=== PATIENT | female | born 1980 | race Caucasian/White ===

== ENCOUNTER 2018-01-13 08:30 | Outpatient (RCR) | payer MEDICAID, SELFPAY ==
--- NOTE | 2017-12-27 10:00 | IE_ITS ---
Date: December 27, 2017 Referring: Dr. Snehal Edwards Diagnosis: 6 weeks post op right tennis elbow surgery P.T. Diagnosis: 6 weeks post op right tennis elbow surgery SUBJECTIVE: History of Present Illness: Patient is a 37 year old female s/p right tennis elbow surgery on 11/11/[address] Brian. She has failed to respond to conservative treatment including previous PT and multiple injections with chronic lateral epicondylitis. She reports of minimal to no swelling at this time. She reports of prn sling usage post operatively. She has not been utilizing for quite some time. She has been referred to PT to begin light strengthening activities with follow up in [address] Brian. Pain Ratin/10 Pain Location: lateral right elbow, fatigue noted quickly in to the extensor compartment with any usage Prior Level of Function: Independent Current Level of Function: limited grasp, lifting, and usage of her right UE post operatively - slowly returning to household related chores Previous Treatment: PT, injections Social: She lives at home with her daughter. 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 She will be returning to work in the end of December. Comorbidities: Chronic headaches, occ tingling and numbness right hand secondary to CTS. She has had a cock up wrist splint fabricated in the past. She has not been utilizing currently. GERD, s/p cystoscopy, s/p tonsillectomy Falls in the last year: No Reported hospitalizations in the last year - No Medications: Omeprazole Quality of Life: Good Standardized Measures: DASH score: 52.5 % perceived disability rating. OBJECTIVE: Posture: mild forward head, protracted scapulae bilaterally Observation: Incision has healed well with no signs of infection. Minimal to no swelling noted at time of PT consult. Palpation: Sensitive to palpation over the incision right lateral elbow and into the extensor compartment. ROM: Active right wrist flexion 70 degrees, extension 70 degrees, ulnar deviation 45 degrees, radial deviation 25 degrees. Mild tightness without complaints of pain. Right elbow flexion 115 degrees, extension lacking 5 degrees from neutral with light drawing senstation noted. AAROM right elbow flexion 130 degrees, extension 0 degrees. Left wrist equal to contralateral side without pain. Left elbow flexion 140 degrees, extension 0 degrees. Demonstrates full A shoulder ROM without pain. Strength: Rosado Pinch right 6 lbs, left 16 lbs, Pinch right 3 lbs, left 10 lbs, 3 shabana jaw right 4 lbs, left 12 lbs. Functional Grasp utilizing Gerry setting 2 average of 3 trials: right 5 lbs, left 68 lbs. Neuro: Intact to light touch. Notes occasional paresthesias consistent with the median nerve distribution. Recommended she utilize wrist splint at night for symptomatic reduction. Treatment: IE: 24408 Patient Education: in HEP promoting AROM and light strengthening of the right wrist and forearm. P/AAROM performed to the right elbow and wrist within symptom allowance. Scar tissue mobilization also provided. STM throughout the extensor compartment. Followed by cryotherapy to the right elbow for 10 minutes at no charge. Recommended that she continue to ice for pain relief especially as she returns to her previous level of function and routine with household related chores. Direct treatment time: 35 minutes Total treatment time: 45 minutes ASSESSMENT: Patient is a 37-year-old female, referred for PT services with the diagnosis of s/p right tennis elbow surgery on 11/11/17. Patient presents with clinical signs and symptoms consistent with diagnosis, as demonstrated by the following impairment level findings: impaired motor function, muscle performance, ROM and pain. Impairments are contributing to the following functional limitations: limited ADL's, lifting, grasp, DASH 52.5% Patient is assessed as: Low 39950 complexity, based on the following: History: See comorbidities and social history. Examination: See above for functional limitations and impairments. Presentation: Stable . Decision-Making: Low complexity 52.5 % Disability based on DASH Patient requires skilled PT intervention to remediate the above functional limitations to return to: __X__ Premorbid level of function __X__ Return to full functional mobility __X__ Return to work demands __X__ Improve QOL Prognosis: Good STG: __4__ weeks. 1. Patient demonstrate full active ROM of the right elbow, forearm and wrist. 2. Demonstrate improved functional grasp by 5 lbs or greater right hand. 3. Increased pinch strength by 3 lbs or greater right hand. 4. Reduced PDR via DASH by 25 % or greater. 5. Improved ADL tolerance with reduced pain via VAS by 50% or greater. LTG: __8__ weeks. 1. Return to premorbid level of function. 2. Return to full, pain-free, functional mobility. 3. Independent with self-maintenance program. PLAN: Patient to be seen 2 x per week, for 8 weeks, adjusting frequency of visits per patient symptoms and response to treatment. Treatment to include: Manual therapy - 65747: Promoting A/AA/PROM throughout the right elbow, forearm, wrist and hand with mobilization as needed. STM, scar tissue mobilization, soft tissue stretching Therapeutic exercise - 67818. Progressive resisted training to the right UE within symptom allowance and per protocol s/p tennis elbow surgery. Modalities will be utilized as needed for pain reduction. Progression to strong I self management program as symptom level is tolerated. Will plan on discharge from our care when above goals have been met. Thank you for this referral. Please do not hesitate to contact me with any questions or concerns regarding this patient's plan of care.
--- NOTE | 2017-12-30 09:30 | PTTR_ITS ---
DATE: 12/30/17 SUBJECTIVE: Has been trying to do her HEP regularly. Elbow pain is about a 4 out of 10 on 0-10 pain scale. OBJECTIVE: Manual therapy: (27547x2). Performed soft tissue mobilization throughout the right forearm, gentle AAROM into wrist flexion, extension and supination/ pronation, scar tissue massage and stretching into elbow flexion and extension. Therapeutic procedures (34231o6). * x HEP review: Upgraded HEP to include PREs for right wrist and elbow. See copy of these exercises located in patient's file. Unable to utilize resistance with wrist flexion or extension due to sensitivity, advised to do without resistance for now until able to perform 20 to 30 reps without pain with no weight. * x See flow sheet: Focus on light wrist and forearm strengthening. * x Provided skilled instruction in proper exercise performance * x Provided skilled manual cues to facilitate proper muscle recruitment and/ or movement pattern * Ended session with cryotherapy x 10 minutes to right elbow. Direct treatment time: 30 minutes Total treatment time: 40 minutes
--- NOTE | 2018-01-02 13:30 | PTTR_ITS ---
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 She feels this position will be better for her health rodriguez. Manual therapy: (15652e2). Did receive soft tissue mobilization throughout the R extensor musculature as well as scar tissue massage to the R elbow. Gentle stretching into wrist flexion/extension was performed as well as elbow flexion/extension which was full. Therapeutic procedures ([id number]). See flow sheet for Therex activities performed in clinic today. Focus was on strengthening of the R elbow, forearm and hand musculature. Verbal and tactile cueing were given throughout session for proper positioning and isolation of specific muscles. Treatment was ended with 10 mins of cryotherapy while in seated position at no charge. Direct treatment time: 35 mins Total treatment time: 45 mins SG/dl
--- NOTE | 2018-01-07 09:30 | PTTR_ITS ---
DATE: 01/07/18 SUBJECTIVE: Indicated she is doing okay, but forearm is sore this morning. 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 Thinks this will be good for her physically and mentally. OBJECTIVE: Manual therapy: ([id number]). Soft tissue mobilization throughout the right elbow / forearm. This included scar tissue massage and AAROM of elbow and wrist throughout all planes. Therapeutic procedures (33150p4). * x See flow sheet: Focus on strengthening of right UE. * x Provided skilled instruction in proper exercise performance * x Provided skilled manual cues to facilitate proper muscle recruitment and/ or movement pattern Ended session with cryotherapy x 10 minutes to right elbow. Direct treatment time: 35 minutes Total treatment time: 45 minutes
--- NOTE | 2018-01-10 09:00 | PTTR_ITS ---
DATE: January 10, 2018 SUBJECTIVE: Christina reports that she is overall doing well. She starts a new job on the Jan. 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 She is very excited to start. She feels that her ROM is doing well. Continues to note generalized soreness however continues to do more and more at home with less difficulty. OBJECTIVE: Manual therapy: ([id number]).STM throughout the right forearm and distal bicep. Scar tissue mobilization also provided. P/AAROM throughout the right forearm and elbow. Soft tissue stretching of the wrist flexors and extensors. ROM is currently WNL. Therapeutic procedures ([id number]). * X See flow sheet: Completed therex routine incorporated functional grasp, pinch and forearm stabilization including bicep curl. * X Provided skilled instruction in proper exercise performance: promoting body mechanics * X Provided skilled manual cues to facilitate proper muscle recruitment and/ or movement pattern: avoiding compensatory movement patterns. Ended with cryotherapy to the right elbow post session for 10 minutes. Will continue to advance with resistance training within symptom allowance. ROM is doing great and is WNL at this time. Direct treatment time: 30 minutes Total treatment time: 40 minutes
--- NOTE | 2018-01-13 11:09 | PTTR_ITS ---
DATE: 01/13/18 SUBJECTIVE: Christina reports feeling a little better. She c/o a global soreness which seems to be more superficial. OBJECTIVE: Manual therapy: (30505h3). STM t/o entire right UE. Light scar tissue work. I focused most of STM t/o lateral aspect of upper arm. She also received ROM t/o all planes of elbow. Stretching of forearm, wrist flexors and extensors. She ended with cryo x 10 min to elbow. Therapeutic procedures ([id number]). * x See flow sheet: for global strength and stabilization of right UE. * x Provided skilled instruction in proper exercise performance: cues for proper mechanics. Direct treatment time: 30 min Total treatment time: 40 min
--- NOTE | 2018-01-15 08:57 | NT_ITS ---
Christina cancelled today's appointment. She is taking her dog to the vet for an appointment. She will see Alicia next week. Jaclyn Watson Maintenance Mgr
== END 2018-01-17 23:59 | disposition home or self-care (01) ==
LOC: PT 08:30
PROVIDERS: PCP Internal Medicine; Referring Provider Orthopaedic Surgery; Visit Provider Orthopaedic Surgery
DX: Z47.1 Aftercare following joint replacement surgery (principal); M77.11 Lateral epicondylitis, right elbow
CPT/HCPCS: 97110; 97140; 97161

== ENCOUNTER 2018-05-21 19:28 | Emergency (ER) | payer MEDICAID, SELFPAY ==
[2018-05-21 19:39] VITALS: BP 140/88; PULSE 80; RESP 16; TEMP 36.5; O2SAT 100
--- NOTE | 2018-05-21 19:46 | W.ED.GENAD ---
Discharge Plan Disposition Patient Disposition: HOME Condition: Fair Discharge Details Chief Complaint: Laceration Clinical Impression: Finger laceration Reason For Visit: [id number] Primary Care Provider: Luana Lopez ED Provider: Taya Curry Home Meds and New Rx's Prescriptions: No Action epinephrine [EpiPen 2-Dante] 0.3 MG/0.3 ML auto-injector 0.3 mg IM as directed Qty: 1 RF: 0 omeprazole 20 MG capsule,delayed release(DR/EC) 20 mg PO DAILY Qty: 90 RF: 4 PROVENTIL HFA 18 GM HFA.AER.AD 1 - 2 puff Inhalation QID PRN Qty: 1 RF: 0 diphenhydramine-acetaminophen [Tylenol PM Extra Strength] 1 EACH tablet 2 ea PO HS PRNRF: 0 ibuprofen 800 MG tablet 800 mg PO TID Qty: 30 RF: 0 Discharge Instructions Instructions: Finger Laceration (ED) Additional Instructions: Keep wound clean, dry, covered. Monitor for signs of infection including redness, warmth, drainage, increased pain, fevers/chills. If these arise please seek care urgently once again. Referrals: Luana Lopez MD [Primary Care Provider] - Medical Decision Making Patient is a 38 year old RHD female presenting today with c/c of laceration to the left index finger. reprots she cut herself last night with a bread knife. Denies other at the time of the incident. No fevers/chills. States that throughout the day she has noted altered sensation, described as tingling, distally to the laceration. 2 point discrimination is intact. Wound appears very superficial, no active bleeding. She was also concerned for possible infection. She did wash the wound and covered with adhesive last night. Removed dahesive today. No erythema, warmmth, drainage. Advised that her tingling may be associated with the swelling noted around the wound. No signs of infection at this time. Advised on wound care in depth. Wound was cleansed and dressed by nursing staff. Discussed signs and symptoms of infection and when to seek care urgently once again. She is not UTD on tetanus, will update this today. All of her questions and concerns were addressed, she is in agreement with this plan. HPI General Mode of arrival: ambulatory. Date/Time Provider Initiated Documentation: 05/21/18 19:36. Limitations to Documentation: no limitations. Information obtained by: patient and family. History of Present Illness 38 year old F presents to the emergency department with the chief complaint of laceration left index finger, described as mild, Quality is described as aching, and is localized to the left and upper extremity. Patient reports no radiation. Patient started experiencing this day(s) (1) and it has been constant. No relieving factors improve symptom(s), No exacerbating factors reported . Patient notes other (endorses tingling distal to the wound); denies cough, fever/chills and rash. Patient did receive the following treatments prior to arrival, none Related Data Home Medications Medication Instructions Recorded Confirmed epinephrine [Epipen 2-Dante] 0.3 mg IM as directed #1 pack 11/22/15 05/21/18 diphenhydramine-acetaminophen 2 ea PO HS PRN 06/07/16 05/21/18 [Tylenol Pm Ex-Strength Caplet] omeprazole 20 mg PO DAILY #90 tab-cap 08/12/17 05/21/18 ibuprofen 800 mg PO TID #30 tab 11/11/17 05/21/18 Previous Rx's Medication Instructions Recorded omeprazole 20 mg PO DAILY #90 tab-cap 08/12/17 ibuprofen 800 mg PO TID #30 tab 11/11/17 Allergies Allergy/AdvReac Type Severity Reaction Status Date / Time shellfish derived Allergy Severe Unverified 05/21/18 19:44 wheat Allergy Intermediate TIGHTENING Unverified 05/21/18 19:44 OF THROAT latex Allergy Mild SKIN RASH Unverified 05/21/18 19:44 Penicillins Allergy Mild HIVES Unverified 05/21/18 19:44 amoxicillin Allergy Unknown HIVES Unverified 05/21/18 19:44 egg Allergy Unknown Unverified 05/21/18 19:44 milk Allergy Unknown Unverified 05/21/18 19:44 lactose AdvReac Mild DIARRHEA Unverified 05/21/18 19:44 melons Allergy Severe Itching Uncoded 05/21/18 19:44 ADHESIVE TAPE Allergy Mild SKIN RASH Uncoded 05/21/18 19:44 ANIMAL DANDER Allergy Unknown Uncoded 05/21/18 19:44 MOLDS AND SMUTS Allergy Unknown Uncoded 05/21/18 19:44 General Stated Complaint: Laceration MARCUS: 4 Review of Systems Constitutional Reports as per HPI, Denies chills and Denies fever(s) Musculoskeletal Reports as per HPI and Reports tingling Integumentary/Breasts Reports as per HPI Neurologic Reports as per HPI and Reports tingling [facility] Medical History Bipolar 2 disorder Contraceptive management Depression Family History Mother Stroke Father Depression Heart disease Myocardial infarction Sister Substance abuse Sister Substance abuse Brother No problems noted. Grandfather Stroke Grandfather No problems noted. Grandmother Stroke Grandmother No problems noted. Daughter Depression Daughter No problems noted. Social History Smoking/Tobacco Use Status: Former Tobacco Use Exam Const General: cooperative, healthy appearing, comfortable, no acute distress and well developed Nutritional Appearance: average body habitus and well nourished Orientation: alert and awake Resp Effort & Inspection: normal respiratory effort, able to speak in complete sentences and no respiratory distress Cardio Rate: regular rate Rhythm: regular rhythm Skin Trauma: laceration (superfical curvilinear wound radial left index, 5mm. No bleeding) Neuro General: alert and awake Cognition: normal cognition Speech: speech normal Gait: normal gait Sensory Exam: no sensory deficits noted (2 point intact) Extrem Left upper extremity: full ROM, normal capillary refill and hand Details: normal capillary refill, neuromotor exam normal, neurosensory exam normal, tendon exam normal and tenderness (around laceration); abnormal to inspection (as above), no cyanosis and joint enlargement noted (patient has swelling around the wound. No erythema, warmth, drainage) Psych Appearance: grossly normal and well kempt Mental Status: mental status grossly normal Speech and Movement: speech and movement normal Course Vital Signs Temperature 36.5 C 05/21/18 19:39 Pulse 80 05/21/18 19:39 Respiratory Rate 16 05/21/18 19:39 Blood Pressure 140/88 05/21/18 19:39 Pulse Oximetry 100 05/21/18 19:39 Temperature 36.5 C 05/21/18 19:39 Temperature Source Temporal Artery Scan 05/21/18 19:39 Pulse 80 05/21/18 19:39 Respiratory Rate 16 05/21/18 19:39 Respiratory Effort 05/21/18 19:42 Blood Pressure 140/88 05/21/18 19:39 Pulse Oximetry 100 05/21/18 19:39 Oxygen Delivery Method Room Air 05/21/18 19:39 Oxygen Flow Rate 0 05/21/18 19:39
--- NOTE | 2018-05-21 20:51 | ED.GENADUL_ITS ---
Discharge Plan Disposition Patient Disposition: HOME Condition: Fair Discharge Details Chief Complaint: Laceration Clinical Impression: Finger laceration Reason For Visit: [id number] Primary Care Provider: Luana Lopez ED Provider: Taya Curry Home Meds and New Rx's Prescriptions: No Action epinephrine [EpiPen 2-Dante] 0.3 MG/0.3 ML auto-injector 0.3 mg IM as directed Qty: 1 RF: 0 omeprazole 20 MG capsule,delayed release(DR/EC) 20 mg PO DAILY Qty: 90 RF: 4 PROVENTIL HFA 18 GM HFA.AER.AD 1 - 2 puff Inhalation QID PRN Qty: 1 RF: 0 diphenhydramine-acetaminophen [Tylenol PM Extra Strength] 1 EACH tablet 2 ea PO HS PRNRF: 0 ibuprofen 800 MG tablet 800 mg PO TID Qty: 30 RF: 0 Discharge Instructions Instructions: Finger Laceration (ED) Additional Instructions: Keep wound clean, dry, covered. Monitor for signs of infection including redness, warmth, drainage, increased pain, fevers/chills. If these arise please seek care urgently once again. Referrals: Luana Lopez MD [Primary Care Provider] - Medical Decision Making Patient is a 38 year old RHD female presenting today with c/c of laceration to the left index finger. reprots she cut herself last night with a bread knife. Denies other at the time of the incident. No fevers/chills. States that throughout the day she has noted altered sensation, described as tingling, d istally to the laceration. 2 point discrimination is intact. Wound appears very superficial, no active bleeding. She was also concerned for possible infection. She did wash the wound and covered with adhesive last night. Removed dahesive today. No erythema, warmmth, drainage. Advised that her tingling may be associated with the swelling noted around the wound. No signs of infection at this time. Advised on wound care in depth. Wound was cleansed and dressed by nursing staff. Discussed signs and symptoms of infection and when to seek care urgently once again. She is not UTD on tetanus, will update this today. All of her questions and concerns were addressed, she is in agreement with this plan. HPI General Mode of arrival: ambulatory . Date/Time Provider Initiated Documentation: 05/21/18 19:36 . Limitations to Documentation: no limitations . Information obtained by: patient and family . History of Present Illness 38 year old F presents to the emergency department with the chief complaint of laceration left index finger, described as mild, Quality is described as aching, and is localized to the left and upper extremity. Patient reports no radiation. Patient started experiencing this day(s) (1) and it has been constant. No relieving factors improve symptom(s), No exacerbating factors reported . Patient notes other (endorses tingling distal to the wound); denies cough, fever/chills and rash. Patient did receive the following treatments prior to arrival, none Related Data Home Medications Medication Instructions Recorded Confirmed epinephrine [Epipen 2-Dante] 0.3 mg IM as directed #1 pack 11/22/15 05/21/18 diphenhydramine-acetaminophen 2 ea PO HS PRN 06/07/16 05/21/18 [Tylenol Pm Ex-Strength Caplet] omeprazole 20 mg PO DAILY #90 tab-cap 08/12/17 05/21/18 ibuprofen 800 mg PO TID #30 tab 11/11/17 05/21/18 Previous Rx's Medication Instructions Recorded omeprazole 20 mg PO DAILY #90 tab-cap 08/12/17 ibuprofen 800 mg PO TID #30 tab 11/11/17 Allergies Allergy/AdvReac Type Severity Reaction Status Date / Time shellfish derived Allergy Severe Unverified 05/21/18 19:44 wheat Allergy Intermediate TIGHTENING Unverified 05/21/18 19:44 OF THROAT latex Allergy Mild SKIN RASH Unverified 05/21/18 19:44 Penicillins Allergy Mild HIVES Unverified 05/21/18 19:44 amoxicillin Allergy Unknown HIVES Unverified 05/21/18 19:44 egg Allergy Unknown Unverified 05/21/18 19:44 milk Allergy Unknown Unverified 05/21/18 19:44 lactose AdvReac Mild DIARRHEA Unverified 05/21/18 19:44 melons Allergy Severe Itching Uncoded 05/21/18 19:44 ADHESIVE TAPE Allergy Mild SKIN RASH Uncoded 05/21/18 19:44 ANIMAL DANDER Allergy Unknown Uncoded 05/21/18 19:44 MOLDS AND SMUTS Allergy Unknown Uncoded 05/21/18 19:44 General Stated Complaint: Laceration MARCUS: 4 Review of Systems Constitutional Reports as per HPI, Denies chills and Denies fever(s) Musculoskeletal Reports as per HPI and Reports tingling Integumentary/Breasts Reports as per HPI Neurologic Reports as per HPI and Reports tingling [facility] Medical History Bipolar 2 disorder Contraceptive management Depression Family History Mother Stroke Father Depression Heart disease Myocardial infarction Sister Substance abuse Sister Substance abuse Brother No problems noted. Grandfather Stroke Grandfather No problems noted. Grandmother Stroke Grandmother No problems noted. Daughter Depression Daughter No problems noted. Social History Smoking/Tobacco Use Status: Former Tobacco Use Exam Const General: cooperative, healthy appearing, comfortable, no acute distress and well developed Nutritional Appearance: average body habitus and well nourished Orientation: alert and awake Resp Effort & Inspection: normal respiratory effort, able to speak in complete sentences and no respiratory distress Cardio Rate: regular rate Rhythm: regular rhythm Skin Trauma: laceration (superfical curvilinear wound radial left index, 5mm. No bleeding) Neuro General: alert and awake Cognition: normal cognition Speech: speech normal Gait: normal gait Sensory Exam: no sensory deficits noted (2 point intact) Extrem Left upper extremity: full ROM, normal capillary refill and hand Details: normal capillary refill, neuromotor exam normal, neurosensory exam normal, tendon exam normal and tenderness (around laceration); abnormal to inspection (as above), no cyanosis and joint enlargement noted (patient has swelling around the wound. No erythema, warmth, drainage) Psych Appearance: grossly normal and well kempt Mental Status: mental status grossly normal Speech and Movement: speech and movement normal Course Vital Signs Temperature 36.5 C 05/21/18 19:39 Pulse 80 05/21/18 19:39 Respiratory Rate 16 05/21/18 19:39 Blood Pressure 140/88 05/21/18 19:39 Pulse Oximetry 100 05/21/18 19:39 Temperature 36.5 C 05/21/18 19:39 Temperature Source Temporal Artery Scan 05/21/18 19:39 Pulse 80 05/21/18 19:39 Respiratory Rate 16 05/21/18 19:39 Respiratory Effort 05/21/18 19:42 Blood Pressure 140/88 05/21/18 19:39 Pulse Oximetry 100 05/21/18 19:39 Oxygen Delivery Method Room Air 05/21/18 19:39 Oxygen Flow Rate 0 05/21/18 19:39
== END 2018-05-21 20:02 | disposition home or self-care (01) ==
PROVIDERS: Emergency Provider Physician Assistant; PCP Internal Medicine
DX: S61.211A Laceration without foreign body of left index finger without damage to nail, initial encounter (principal); W26.0XXA Contact with knife, initial encounter
CPT/HCPCS: 99282

== ENCOUNTER 2018-10-14 17:01 | Emergency (ER) | payer MEDICAID, SELFPAY ==
[2018-10-14 17:12] VITALS: BP 135/95; PULSE 82; RESP 16; TEMP 36.6; O2SAT 98
--- NOTE | 2018-10-14 17:48 | DI.RAD_ITS ---
SYMPTOM/DIAGNOSIS: COUGH PA AND LATERAL CHEST: The heart is normal in size. The lungs are clear. The mediastinal structures and pleura appear intact. CONCLUSION: Normal chest. No evidence of acute cardiopulmonary disease.
--- NOTE | 2018-10-14 18:28 | ED.GENADUL_ITS ---
Discharge Plan Disposition Patient Disposition: HOME Discharge Details Chief Complaint: RespSymp Clinical Impression: Pneumonia Primary Care Provider: Luana Lopez ED Provider: Louis Wilder Home Meds and New Rx's Prescriptions: New doxycycline hyclate 100 mg tablet 100 mg PO BID Qty: 13 RF: 0 Continued epinephrine [EpiPen 2-Dante] 0.3 MG/0.3 ML auto-injector 0.3 mg IM as directed Qty: 1 RF: 0 PROVENTIL HFA 18 GM HFA.AER.AD 1 - 2 puff Inhalation QID PRN Qty: 1 RF: 0 omeprazole 20 mg capsule,delayed release(DR/EC) 20 mg PO DAILY Qty: 90 RF: 4 diphenhydramine-acetaminophen [Tylenol PM Extra Strength] 1 EACH tablet 2 ea PO HS PRNRF: 0 ibuprofen 800 MG tablet 800 mg PO TID Qty: 30 RF: 0 Discharge Instructions Instructions: Pneumonia (ED) Additional Instructions: Please drink plenty of fluids to stay hydrated. Take full course of antibiotic as prescribed. Please contact your primary care physician to arrange follow-up. Call tomorrow. Return to the ER for any worsening or new concerning symptoms. Referrals: Luana Lopez MD [Primary Care Provider] - Discharge Data Discharge Date/Time-TO BE ENTERED AT DEPARTURE: 10/14/18 19:22 Medical Decision Making 38-year-old female here with 4 weeks of productive cough, worsening, also with sinus congestion. Positive sick family member with respiratory illness. Patient is saturating well in no respiratory distress with clear to auscultation on exam. Chest x-ray reviewed and interpreted by radiology: Suspect worsening bacterial bronchitis versus early pneumonia. Plan to treat with doxycycline -local resistance to azithromycin and patient has penicillin allergy. Plan of the patient follow-up with her primary care physician. Usual customary discharge instructions were provided the patient. Patient verbalized understanding of timely follow-up and that she should return immediately should she have any worsening or new concerning symptoms HPI General Mode of arrival: ambulatory . Date/Time Provider Initiated Documentation: 10/14/18 17:11 . Limitations to Documentation: no limitations . Information obtained by: patient . HPI Narrative: 38-year-old female presents with chief complaint of cough. Patient has she has had a cough for the past 4 weeks. Cough has persisted and worsened. Cough is now moderate to severe. Cough is productive of green sputum. She has associated intermittent subjective fever. No shortness of breath. She does feel some chest congestion. She also notes sinus congestion and sinus pain intermittently. No sore throat or ear pain. No recent long distance travel. Her daughter is sick with respiratory illness as well. She has tried some [id number]-[id number] cough and cold medications that have not provided much relief. Patient has not yet seen her primary care physician. Related Data Home Medications Medication Instructions Recorded Confirmed epinephrine [EpiPen 2-Dante] 0.3 mg IM as directed #1 pack 11/22/15 10/14/18 diphenhydramine-acetaminophen 2 ea PO HS PRN 06/07/16 10/14/18 [Tylenol PM Extra Strength] ibuprofen 800 mg PO TID #30 tab 11/11/17 10/14/18 doxycycline hyclate 100 mg PO BID #13 tab 10/14/18 omeprazole 20 mg capsule,delayed 20 mg PO DAILY #90 tab-cap 10/14/18 10/14/18 release Previous Rx's Medication Instructions Recorded ibuprofen 800 mg PO TID #30 tab 11/11/17 doxycycline hyclate 100 mg PO BID #13 tab 10/14/18 omeprazole 20 mg capsule,delayed 20 mg PO DAILY #90 tab-cap 10/14/18 release Allergies Allergy/AdvReac Type Severity Reaction Status Date / Time shellfish derived Allergy Severe Unverified 10/14/18 17:15 wheat Allergy Intermediate TIGHTENING Unverified 10/14/18 17:15 OF THROAT latex Allergy Mild SKIN RASH Unverified 10/14/18 17:15 Penicillins Allergy Mild HIVES Unverified 10/14/18 17:15 amoxicillin Allergy Unknown HIVES Unverified 10/14/18 17:15 egg Allergy Unknown Unverified 10/14/18 17:15 milk Allergy Unknown Unverified 10/14/18 17:15 lactose AdvReac Mild DIARRHEA Unverified 10/14/18 17:15 melons Allergy Severe Itching Uncoded 10/14/18 17:15 ADHESIVE TAPE Allergy Mild SKIN RASH Uncoded 10/14/18 17:15 ANIMAL DANDER Allergy Unknown Uncoded 10/14/18 17:15 MOLDS AND SMUTS Allergy Unknown Uncoded 10/14/18 17:15 General Stated Complaint: RespSymp MARCUS: 4 Review of Systems Review of Systems All systems reviewed & are unremarkable except as noted in HPI and below ENT Reports sinus pain and Reports sinus pressure Respiratory Reports chest congestion and Reports cough PFSH Medical History Bipolar 2 disorder Contraceptive management Depression Family History Mother Stroke Father Depression Heart disease Myocardial infarction Sister Substance abuse Sister Substance abuse Brother No problems noted. Grandfather Stroke Grandfather No problems noted. Grandmother Stroke Grandmother No problems noted. Daughter Depression Daughter No problems noted. Social History Smoking/Tobacco Use Status: Former Tobacco Use Drug use: Never Do you feel safe in your relationship?: Yes Exam Const General: cooperative and no acute distress HENMT Head: normocephalic General nose exam: external nose normal and nares normal Mouth: moist mucous membranes Throat: uvula midline, posterior oropharynx abnormal erythema (mild); no cobblstoning, no edema and no exudates and no uvular edema Eyes Conjunctivae: normal conjunctivae Sclera: normal sclerae Neck Neck: normal visual inspection Resp Effort & Inspection: normal respiratory effort, able to speak in complete sentences, cough Quality of cough: productive, not labored, no stridor and not tachypneic Auscultation: no rales, rhonchi and no wheezes Cardio Rate: regular rate and not tachycardic Rhythm: regular rhythm GI Palpation: soft, not firm, no guarding, no masses, not rigid and nontender Skin General skin exam: no rashes or lesions noted Neuro General: alert, awake and tone normal Extrem General: no edema Course Vital Signs Temperature 36.6 C 10/14/18 17:12 Pulse 82 10/14/18 17:12 Respiratory Rate 16 10/14/18 17:12 Blood Pressure 135/95 H 10/14/18 17:12 Pulse Oximetry 98 10/14/18 17:12 Temperature 36.6 C 10/14/18 17:12 Temperature Source Skin 10/14/18 17:12 Pulse 82 10/14/18 17:12 Respiratory Rate 16 10/14/18 17:12 Respiratory Effort Non-Labored 10/14/18 17:12 Blood Pressure 135/95 H 10/14/18 17:12 Blood Pressure Position Sitting 10/14/18 17:12 Pulse Oximetry 98 10/14/18 17:12 Oxygen Delivery Method Room Air 10/14/18 17:12 Oxygen Flow Rate 0 10/14/18 17:12 Pain Level 3 10/14/18 17:12
--- NOTE | 2018-10-14 18:55 | DI.VRAD_ITS ---
EXAM: XR Chest, 2 Views EXAM DATE/TIME: 10/14/2018 5:49 PM CLINICAL HISTORY: 38 years old, female; Signs and symptoms; Other: Cough 1mo TECHNIQUE: Imaging protocol: XR of the chest, 2 views. COMPARISON: CR CHEST 2 VIEWS PA,LAT 07/10/2012 1:34 PM FINDINGS: Lungs: Lungs are adequately inflated and symmetric. No focal consolidation or pulmonary edema. Pleural space: No pleural effusion. No pneumothorax. Heart/Mediastinum: Cardiomediastinal contours within normal limits. Bones/joints: No acute osseous finding. Soft tissues: No focal soft tissue abnormailty. IMPRESSION: No acute findings. Dictated and Authenticated by: Jeremiah Blunt MD. Ordering:BIENVENIDO Myers MD
[2018-10-14 19:11] VITALS: BP 120/80; PULSE 77; RESP 17; TEMP 36.6; O2SAT 98
[2018-10-14] MEDS: Doxycycline Hyclate 100 MG CAP PO (19:11)
== END 2018-10-14 19:22 | disposition home or self-care (01) ==
PROVIDERS: Emergency Provider Student in an Organized Health Care Education/Training Program; PCP Internal Medicine
DX: J18.9 Pneumonia, unspecified organism (principal); R09.81 Nasal congestion
CPT/HCPCS: 99283; 71046

== ENCOUNTER 2019-04-03 12:37 | Outpatient (CLI) | payer OTHER, SELFPAY ==
[2019-04-03 12:56] LABS: HCT 39.9 % (36.0-46.0); HGB 13.3 g/dL (12.0-15.5); Mean Corp. HGB Concentration 33.3 g/dL (32.0-36.0); Mean Corpuscular Hemoglobin 30.7 pg (27.0-33.0); Mean Corpuscular Volume 92.1 fL (80-95); Mean Platelet Volume 9.4 fL (8.0-11.0); Platelet Count 387 x1000/uL (130-400); RBC 4.33 m/cumm (4.00-5.20); RBC Distribution Width 12.7 % (11.7-14.6); White Blood Cell Count 8.57 k/cumm (4.4-10.8)
[2019-04-03 14:13] LABS: Anion Gap 7.7 mmol/L (3-11); BUN 15 mg/dL (7-18); CO2 26.3 mmol/L (21.0-32.0); Calcium 9.1 mg/dL (8.5-10.1); Chloride 105 mmol/L (98-107); Glucose 94 mg/dL (70-100); Potassium 4.5 mmol/L (3.5-5.1); Sodium 139 mmol/L (136-145); TSH 1.97 uIU/mL (0.36-3.74)
== END 2019-04-03 12:57 ==
PROVIDERS: PCP Internal Medicine; Visit Provider Nurse Practitioner
DX: R42 Dizziness and giddiness (principal); F41.9 Anxiety disorder, unspecified
CPT/HCPCS: 36415; 80048; 85027; 84443

== ENCOUNTER 2019-04-23 16:25 | Outpatient (REF) | payer OTHER, SELFPAY ==
--- NOTE | 2019-04-23 15:50 | PAPFT_PTH ---
PATIENT: Nely Reyes LOC: [facility] U#:[id number] AGE/SX: 39/F ROOM: RE04/23/[address]: STEVE Holcomb : 1980 BED: DIS: 04/23/2019 SPEC #: [id number] RECD: 04/23/19 18:28 STATUS: KIARA REQ #: [id number] BEN: 04/23/19 15:[address]: Earnestine Flanagan DEPT: [facility] Cytology RECD BY: Syl Rodas ENTERED: 04/23/19 18:28 SP TYPE: PAPFT NATALEE DR: Luana Hernandez MD Tissues: 1 - CX/ENDOCX FOR PAP SMEARS Procedures: PAP THIN PREP/UVM Screening HPV DNA PROBE Comments: [id number]
[2019-04-27 14:43] LABS: Chlamydia Result Negative (Negative)
[2019-04-27 15:25] LABS: GC Result Negative (Negative)
== END 2019-04-23 16:45 ==
LOC: LBN 16:25
PROVIDERS: PCP Internal Medicine; Visit Provider Nurse Practitioner Family
DX: Z11.3 Encounter for screening for infections with a predominantly sexual mode of transmission (principal); Z12.4 Encounter for screening for malignant neoplasm of cervix
CPT/HCPCS: 87491; 87591; 88142; 87624

== ENCOUNTER 2019-05-14 00:20 | Outpatient (CLI) | payer OTHER, SELFPAY ==
--- NOTE | 2019-05-14 08:25 | DI.MAMMO_ITS ---
EXAM: MG MAMMO SCREENING CLINICAL HISTORY: screening TECHNIQUE: Bilateral full field digital CC and MLO mammographic images were obtained with 3D tomosyn thesis and utilizing computer aided detection (CAD). COMPARISON: Available for comparison. FINDINGS: Masses/Architectural Distortion: There are 2 nodular areas in the upper outer quadrant of the left br east. These areas should be further evaluated with spot compression views. Ultrasound may be indica uli at that time. Microcalcifications: No suspicious pleomorphic-type are seen. Skin Thickening/Nipple Retraction: None. IMPRESSION: 1. Two nodular areas in the upper outer quadrant of the left breast. 2. These areas should be further evaluated with spot compression views and left breast ultrasound. BI-RADS Cat 0 - Assessment Incomplete: Need additional imaging evaluation Breast Density - Category B - Scattered areas of fibroglandular density A negative radiographic report should not delay biopsy if a dominant or clinically suspicious mass is present. Up to ten percent of cancers are not identified on mammography. A negative report may reinforce clinical impression. Adenosis and dense breasts may obscure an underlying neoplasm. False positive reports average 6 to 10%. Patient will receive a letter notifying them of these results.
== END 2019-05-14 00:40 ==
PROVIDERS: PCP Internal Medicine; Visit Provider Nurse Practitioner Family
DX: Z12.31 Encounter for screening mammogram for malignant neoplasm of breast (principal); R92.8 Other abnormal and inconclusive findings on diagnostic imaging of breast
CPT/HCPCS: 77063; 77067

== ENCOUNTER 2019-05-22 03:15 | Outpatient (CLI) | payer OTHER, SELFPAY ==
--- NOTE | 2019-05-22 13:48 | DI.MAMMO_ITS ---
EXAM: MG MAMMO SCREEN CALL BACK UNI AND US BREAST LT LIMITED CLINICAL HISTORY: F/U MAMMO, TWO NODULAR AREAS UPPER OUTER QUADRANT LT BREAST TECHNIQUE: Ultrasound performed using standard protocol. COMPARISON: BILATERAL SCREENING MAMMOGRAM 05/14/19 FINDINGS: Additional mammographic views of the left breast and left breast ultrasound are interpreted conjuncti on. These examinations were obtained to evaluate 2 areas of nodularity in the upper outer quadrant o f the left breast noted on recent mammogram. Additional views confirm a lobulated mass, which appear s fairly well-circumscribed measuring up to about 11-12 millimeters in diameter. The other area of q uestionable nodularity is not confirmed mammographically. Ultrasonographically, there is a 9 millimeter in diameter group of cysts corresponding in location to the mammographically identified nodule. No additional solid mass identified. IMPRESSION: No specific evidence of malignancy at this time. Follow-up unilateral left breast mammogram recommen ded in 6 months. Category 3, breast density category B. BI-RADS Cat 3 - 6 month - Probably Benign Finding: Recommend follow-up mammography in 6 months Breast Density - Category B - Scattered areas of fibroglandular density
== END 2019-05-22 03:35 ==
PROVIDERS: PCP Internal Medicine; Visit Provider Nurse Practitioner Family
DX: Z12.31 Encounter for screening mammogram for malignant neoplasm of breast (principal); R92.8 Other abnormal and inconclusive findings on diagnostic imaging of breast; N63.21 Unspecified lump in the left breast, upper outer quadrant
CPT/HCPCS: 76642; 77063; 77067

== ENCOUNTER 2019-09-18 11:49 | Outpatient (CLI) | payer OTHER, SELFPAY ==
[2019-09-19 14:04] LABS: COVID-19 RT-PCR UVMMC Result Negative (Negative)
== END 2019-09-18 12:09 ==
PROVIDERS: PCP Nurse Practitioner; Visit Provider Family Medicine
DX: R07.9 Chest pain, unspecified (principal)
CPT/HCPCS: U0003

== ENCOUNTER 2019-11-20 14:54 | Emergency (ER) | payer OTHER, SELFPAY ==
[2019-11-20 15:05] VITALS: BP 127/92; PULSE 98; RESP 16; TEMP 36.5; O2SAT 98
--- NOTE | 2019-11-20 15:30 | DI.RAD_ITS ---
EXAM: XR ANKLE RT COMPLETE CLINICAL HISTORY: ankle pain, r/o sub acute fx TECHNIQUE: 2D digital imaging was performed. COMPARISON: No exams were available for comparison FINDINGS: No acute or subacute fracture or ankle mortise widening is seen. The talar dome appears intact. The re is mild spurring at the Achilles insertion on the calcaneus. IMPRESSION: No acute abnormality
--- NOTE | 2019-11-20 15:31 | W.ED.GENAD ---
Discharge Plan Disposition Patient Disposition: HOME Condition: Stable Discharge Details Chief Complaint: Orthopedic Clinical Impression: Right ankle sprain Primary Care Provider: Essence Aranda ED Provider: Bridget Bright Home Meds and New Rx's Prescriptions: No Action omeprazole 20 mg capsule,delayed release(DR/EC) 20 mg PO DAILY PRNRF: 0 ibuprofen 800 mg tablet 800 mg PO TID PRNRF: 0 multivitamin [Daily Multi-Vitamin] Tablet 1 tab PO DAILY RF: 0 flaxseed 1,000 mg capsule 1,000 mg PO DAILY RF: 0 Nexplanon 68 mg implant 1 implant SBD ONCE Qty: 1 RF: 0 epinephrine [EpiPen 2-Dante] 0.3 MG/0.3 ML auto-injector 0.3 mg IM as directed Qty: 1 RF: 0 diphenhydramine-acetaminophen [Tylenol PM Extra Strength] 1 EACH tablet 2 ea PO HS PRNRF: 0 Discharge Instructions Instructions: Ankle Sprain (ED) Additional Instructions: Follow-up with orthopedics in 2 to 3 weeks if needed. Wear splint and use crutches for comfort. Toe-touch weight bearing as tolerated. Rest, ice, compression, elevation. Please take Tylenol or Ibuprofen with food every 4-6 hours as needed for pain and swelling. Referrals: Tyrese Brian MD [ [facility] STAFF PHYSICIAN] - (Follow up in 2-3 weeks if needed) Essence Aranda NP [Primary Care Provider] - Medical Decision Making Patient is a 39-year-old female with a chief complaint of right ankle pain after a inversion type injury trip and fall at the end of September approximately 4 to 6 weeks ago. Patient was not seen at that time did not have x-rays completed. She reports that she has some lateral foot tenderness radiates up into the right lateral calf. She states that she has been ambulatory with pain since injury. No obvious deformity, swelling no crepitus palpated. She does have some tenderness over the fifth metatarsal and cuboid bone. No lateral malleolus or medial malleolus swelling or tenderness. She has no other complaints at this time. She did not take any medications prior to arrival. 1536: X-ray ordered to rule out subacute fracture. Ibuprofen 600 mg p.o. ordered. Suspicion is ankle sprain discussed with patient that there is increased healing time with sprain. 1610: TECHNIQUE: Imaging protocol: XR Right ankle. Views: 3 or more views. COMPARISON: No relevant prior studies available. FINDINGS: Bones/joints: No fracture is identified. A heel spur is seen. Soft tissues: No unusual soft tissue calcifications. Soft tissue swelling is noted anteriorly. IMPRESSION: 1. No fracture is identified. If symptoms remain concerning, consider follow-up imaging in 7 days or alternative imaging modalities. 2. Anterior soft tissue swelling. This is a nonspecific finding that can be seen with edema, infection, or trauma. Thank you for allowing us to participate in the care of your patient. Dictated and Authenticated by: Karma Watt MD Plan is to do a stirrup ankle splint and crutches will instruct patient on rest ice compression elevation will give follow-up information if needed in 2 to 3 weeks. Patient ambulated out of department without difficulty. HPI General Mode of arrival: ambulatory. Date/Time Provider Initiated Documentation: 11/20/19 15:25. Limitations to Documentation: no limitations. Information obtained by: patient. HPI Narrative: Patient is a 39-year-old female with a chief complaint of right ankle pain after a inversion type injury trip and fall at the end of September approximately 4 to 6 weeks ago. Patient was not seen at that time did not have x-rays completed. She reports that she has some lateral foot tenderness radiates up into the right lateral calf. She states that she has been ambulatory with pain since injury. No obvious deformity, swelling no crepitus palpated. She does have some tenderness over the fifth metatarsal and cuboid bone. No lateral malleolus or medial malleolus swelling or tenderness. She has no other complaints at this time. She did not take any medications prior to arrival. Related Data Home Medications Medication Instructions Recorded Confirmed epinephrine [EpiPen 2-Dante] 0.3 mg IM as directed #1 pack 11/22/15 11/20/19 diphenhydramine-acetaminophen 2 ea PO HS PRN 06/07/16 11/20/19 [Tylenol PM Extra Strength] ibuprofen 800 mg tablet 800 mg PO TID PRN tab 04/03/19 11/20/19 omeprazole 20 mg capsule,delayed 20 mg PO DAILY PRN tab-cap 04/03/19 11/20/19 release flaxseed 1,000 mg capsule 1,000 mg PO DAILY 06/05/19 11/20/19 multivitamin 1 tab PO DAILY 06/05/19 11/20/19 etonogestrel 68 mg subdermal 1 implant SBD ONCE #1 each 06/17/19 11/20/19 implant Previous Rx's Medication Instructions Recorded etonogestrel 68 mg subdermal 1 implant SBD ONCE #1 each 06/17/19 implant Allergies Allergy/AdvReac Type Severity Reaction Status Date / Time shellfish derived Allergy Severe Unverified 11/20/19 15:09 wheat Allergy Intermediate TIGHTENING Unverified 11/20/19 15:09 OF THROAT latex Allergy Mild SKIN RASH Unverified 11/20/19 15:09 Penicillins Allergy Mild HIVES Unverified 11/20/19 15:09 amoxicillin Allergy Unknown HIVES Unverified 11/20/19 15:09 egg Allergy Unknown Unverified 11/20/19 15:09 milk Allergy Unknown Unverified 11/20/19 15:09 lactose AdvReac Mild DIARRHEA Unverified 11/20/19 15:09 melons Allergy Severe Itching Uncoded 11/20/19 15:09 ADHESIVE TAPE Allergy Mild SKIN RASH Uncoded 11/20/19 15:09 ANIMAL DANDER Allergy Unknown Uncoded 11/20/19 15:09 MOLDS AND SMUTS Allergy Unknown Uncoded 11/20/19 15:09 General Stated Complaint: Orthopedic MARCUS: 4 Review of Systems Narrative: Constitutional: Negative for weight loss, alert and oriented, well groomed, normal body habitus, appears comfortable.. Respiratory: Denies Shortness of breath, cough, hemoptysis. GI: Denies abdominal pain, nausea, vomiting, diarrhea, constipation. : Denies dysuria, hematuria, flank pain, rectal bleeding. Musculoskeletal: Right lateral foot tenderness. Neuro: Denies dizziness, blurry vision, weakness, syncope, headache or facial numbness. Hematologic: Denies easy bruising, intolerance to heat or cold, hair loss. [facility], [facility] Medical History Bipolar 2 disorder Contraceptive management Mirena IUD 08/2014. Depression Nexplanon in place (Acute) Nexplanon insertion (Acute) Family History Mother Stroke alive. went on to have 2 SVDs after CVA. Pt unaware of thrombophilia w/u. Father Depression Heart disease Myocardial infarction Sister Substance abuse Sister Substance abuse Brother No problems noted. Grandfather Stroke Grandfather No problems noted. Grandmother Stroke Grandmother No problems noted. Daughter Depression Daughter No problems noted. Social History Smoking/Tobacco Use Status: Former Tobacco Use Drug use: Never Substance use type: does not use Household members: children and other Details: . Not relationship. 2 daughters Roslyn 22yo, [id number] Number of Children: 2 number of grandchildren: 1 current occupation: Works at [employer] Do you feel safe at home: Yes Do you feel safe in your relationship?: Yes Additional Social history: Granddaughter-Luzma Female Reproductive History Menstrual control method: none History History 4 Para 2 Hx # Term Pregnancies Multiple births Hx # Pregnancies Ectopic pregnancies AB induced Hx Number of Living Children AB spontaneous Exam Narrative Exam Narrative: Constitutional: Alert and oriented x3. Appears stated age. Normal body habitus. Head: Normocephalic, no trauma. Chest: RRR, Normal S1, S2, distal pulses intact. Resp: Lungs clear to auscultation bilaterally, no wheezes, rales, or rhonchi. Musculoskeletal: Normal gait, 5/5 strength to all four extremities. Does have tenderness to palpation over the tuberosity of the fifth metatarsal and cuboid bone on the ankle. No lateral malleolus tenderness or swelling no medial malleolus tenderness or swelling. Dorsal pulses intact cap refill less than 2 seconds. Skin: No suspicious rashes or lesions. Capillary refill less than 2 sec. Course Vital Signs Vital signs: Vital Signs Temperature 36.5 C 11/20/19 15:05 Pulse 98 H 11/20/19 15:05 Respiratory Rate 16 11/20/19 15:05 Blood Pressure 127/92 H 11/20/19 15:05 Pulse Oximetry 98 11/20/19 15:05 Temperature 36.5 C 11/20/19 15:05 Temperature Source Tympanic 11/20/19 15:05 Pulse 98 H 11/20/19 15:05 Respiratory Rate 16 11/20/19 15:05 Respiratory Effort Non-Labored 11/20/19 15:09 Blood Pressure 127/92 H 11/20/19 15:05 Blood Pressure Position Sitting 11/20/19 15:05 Pulse Oximetry 98 11/20/19 15:05 Oxygen Delivery Method Room Air 11/20/19 15:05 Oxygen Flow Rate 0 11/20/19 15:05 Pain Level 4 11/20/19 15:22
[2019-11-20] MEDS: Ibuprofen 600 MG TAB PO (15:38)
--- NOTE | 2019-11-20 16:08 | DI.VRAD_ITS ---
PROCEDURE INFORMATION: Exam: XR Right Ankle Exam date and time: 11/20/2019 3:42 PM Age: 39 years old Clinical indication: Other: Ankle pain, R/O sub ankle FX TECHNIQUE: Imaging protocol: XR Right ankle. Views: 3 or more views. COMPARISON: No relevant prior studies available. FINDINGS: Bones/joints: No fracture is identified. A heel spur is seen. Soft tissues: No unusual soft tissue calcifications. Soft tissue swelling is noted anteriorly. IMPRESSION: 1. No fracture is identified. If symptoms remain concerning, consider follow-up imaging in 7 days or alternative imaging modalities. 2. Anterior soft tissue swelling. This is a nonspecific finding that can be seen with edema, infection, or trauma. Dictated and Authenticated by: Karma Watt MD. Ordering:CHRISTIAN Gill MD
== END 2019-11-20 16:33 | disposition home or self-care (01) ==
PROVIDERS: Emergency Provider Registered Nurse Emergency; PCP Nurse Practitioner
DX: S93.491A Sprain of other ligament of right ankle, initial encounter (principal); X50.9XXA Other and unspecified overexertion or strenuous movements or postures, initial encounter
CPT/HCPCS: 29515; 99283; 73610; E0114; L1902

== ENCOUNTER 2019-12-31 01:00 | Outpatient (CLI) | payer OTHER, SELFPAY ==
--- NOTE | 2019-12-31 13:47 | DI.MAMMO_ITS ---
EXAM: MG MAMMO DIAGNOSTIC UNI CLINICAL HISTORY: F/U ABNL MAMMO, 6 MO F/U. TECHNIQUE: Craniocaudal and mediolateral oblique Full Field Digital Mammography views of the left br east with Computer Aided Diagnosis followed by Tomosynthesis. COMPARISON: Priors available for comparison. FINDINGS: Mammography/Tomosynthesis: Masses/Architectural Distortion: There has been interval decrease in size of the nodule in the upper outer quadrant of the left breast. There is stable asymmetric breast tissue in the upper-outer quadr ant. Microcalcifictions: No suspicious pleomorphic-type are seen. Skin Thickening/Nipple Retraction: None. IMPRESSION: 1. No evidence of malignancy is noted. 2. A follow-up six-month left mammogram is recommended for further evaluation. 3. The findings were discussed with the patient on the date of the examination. BI-RADS Category 3 - 6 month - Probably Benign Finding: Recommend follow-up mammography in 6 months Breast Density - Category B - Scattered areas of fibroglandular density A negative radiographic report should not delay biopsy if a dominant or clinically suspicious mass is present. Up to ten percent of cancers are not identified on mammography. A negative report may reinforce clinical impression. Adenosis and dense breasts may obscure an underlying neoplasm. False positive reports average 6 to 10%. Patient will receive a letter notifying them of these results.
== END 2019-12-31 01:20 ==
PROVIDERS: PCP Nurse Practitioner; Visit Provider Nurse Practitioner
DX: Z12.31 Encounter for screening mammogram for malignant neoplasm of breast (principal); R92.8 Other abnormal and inconclusive findings on diagnostic imaging of breast
CPT/HCPCS: 77061; 77065; G0279

== ENCOUNTER 2020-04-20 03:09 | Outpatient (CLI) | payer OTHER, SELFPAY ==
[2020-04-22 18:21] LABS: COVID-19 RT-PCR Result NEGATIVE (Negative)
== END 2020-04-20 03:29 ==
PROVIDERS: PCP Nurse Practitioner; Visit Provider Nurse Practitioner
DX: Z11.59 Encounter for screening for other viral diseases (principal); Z20.828 Contact with and (suspected) exposure to other viral communicable diseases
CPT/HCPCS: U0003

== ENCOUNTER 2020-05-16 01:51 | Outpatient (CLI) | payer OTHER, SELFPAY ==
--- NOTE | 2020-05-16 | DI.US_ITS ---
EXAM: US BREAST LT COMPLETE CLINICAL HISTORY: F/U ABNL MAMMO, PER RADIOLOGIST. TECHNIQUE: Complete ultrasound examination of the left breast was performed including all 4 quadrant s. COMPARISON: Prior mammograms were reviewed, most recent being today's mammogram.. Prior breast ultr asound performed May 22, 2019 was also reviewed. FINDINGS: For sleep, the previously described finding 2 o'clock position is no longer seen, further evidence th at it was a conglomeration microcysts and indeed that nodule is no longer seen on the mammogram. Today's study reveals a small finding at the 1 o'clock position which is benign in appearance and upo n real-time bedside multiplanar imaging has more the appearance of normal breast tissue than an actua l concerning nodule. The remainder of the breasts is unremarkable including the retroareolar regions. IMPRESSION: Negative left breast ultrasound. The previously present finding at the 2 o'clock position seen on th e ultrasound of May 2019 has resolved, this consistent with today's mammogram which also reveals that nodule to have resolved. The 1 remaining finding on the mammogram in the upper outer quadrant i s unchanged and is probably a benign lymph node, given its lack of visualization on ultrasound +stabi lity from the baseline mammogram of 1 year ago. Appropriate follow-up is to keep this patient on a yearly mammogram schedule, with earlier imaging if a self detected breast changes noted.. BI-RADS Category 2 - Benign Findings Breast Density - Category B - Scattered areas of fibroglandular density Breast density Category C or D implies that the patient has dense breast tissue. Dense breast tissue can make it harder to find cancer on a mammogram. Dense breast tissue is also associated with an incr eased risk of breast cancer. This information about the result of the mammogram report was provided to the patient to raise their awareness. Use this report when you speak with the patient about their risks for breast cancer, which includes their family history. At that time, you may recommend additional screening tests (Ultrasoun d or MRI) as these tests may add significant information. A negative radiographic report should not delay biopsy if a dominant or clinically suspicious mass is present. Up to ten percent of cancers are not identified on mammography. A negative report may reinforce clinical impression. Adenosis and dense breasts may obscure an underlying neoplasm. False positive reports average 6 to 10%. Patient will receive a letter notifying them of these results.
--- NOTE | 2020-05-16 07:30 | DI.MAMMO_ITS ---
EXAM: MG MAMMO DIAGNOSTIC BI CLINICAL HISTORY: F/U ABNL MAMMO, R92.8. TECHNIQUE: Both CC and MLO views of both breasts were performed and compared to prior mammograms. COMPARISON: Prior mammograms dating back to April 2019, the most recent being . Breast ultrasound May 2019 was reviewed FINDINGS: There are no CAD designations There are no new right breast findings. In the left breast previously described nodular density in the upper outer quadrant remains unchanged from April 2019 baseline mammogram. The 2nd nodule which was slightly more medially located is n o longer seen. There are no malignant-appearing microcalcification groups in this region or elsewher e in either breast. No new architectural distortion or skin thickening-traction IMPRESSION: No radiographic evidence of malignancy in the right breast. Left breast density upper outer quadrant again noted. Appropriate follow-up is repeat left breast ultrasound. BI-RADS Category 0 - Assessment Incomplete: Need additional imaging evaluation Breast Density - Category B - Scattered areas of fibroglandular density Breast density Category C or D implies that the patient has dense breast tissue. Dense breast tissue can make it harder to find cancer on a mammogram. Dense breast tissue is also associated with an incr eased risk of breast cancer. This information about the result of the mammogram report was provided to the patient to raise their awareness. Use this report when you speak with the patient about their risks for breast cancer, which includes their family history. At that time, you may recommend additional screening tests (Ultrasoun d or MRI) as these tests may add significant information. A negative radiographic report should not delay biopsy if a dominant or clinically suspicious mass is present. Up to ten percent of cancers are not identified on mammography. A negative report may reinforce clinical impression. Adenosis and dense breasts may obscure an underlying neoplasm. False positive reports average 6 to 10%. Patient will receive a letter notifying them of these results.
== END 2020-05-16 02:11 ==
PROVIDERS: PCP Nurse Practitioner; Visit Provider Nurse Practitioner
DX: R92.8 Other abnormal and inconclusive findings on diagnostic imaging of breast (principal)
CPT/HCPCS: 76642; 77062; 77066; G0279

== ENCOUNTER 2020-07-15 21:28 | Outpatient (REF) | payer OTHER, SELFPAY ==
[2020-07-15 21:21] LABS: Abs Immature Grans 0.01 10^3/uL (0.0-0.06); Absolute Basophil Count 0.03 10^3/uL (0.0-0.2); Absolute Eosinophil Count 0.05 10^3/uL (0.0-0.7); Absolute Lymphocyte Count 2.91 10^3/uL (1.2-3.4); Absolute Monocyte Count 0.68 10^3/uL (0.1-0.8); Absolute Neutrophil Count 6.34 10^3/uL (1.2-6.7); Basophils % 0.3; Eosinophils % 0.5; HCT 43.5 % (36.0-46.0); HGB 13.5 g/dL (11.2-15.7); Immature Grans % 0.1; MCH 30.6 pg (27.0-33.0); MCV 98.6 fL (80-95); MPV 10.7 fL (8.0-11.0); Monocytes % 6.8; Neutrophils % 63.3; Nucleated RBC 0 %; Platelet Count 400 10^3/uL (130-400); RBC 4.41 10^6/uL (3.93-5.22); WBC 10.02 10^3/uL (4.4-10.8)
[2020-07-15 21:23] LABS: Bilirubin Negative (Negative); Blood Trace-lysed (Negative); Clarity Clear (Clear); Glucose Negative (Negative); Ketones Negative (Negative); Leukocyte Esterase Negative (Negative); Nitrite Negative (Negative); Specific Gravity >= 1.030 (1.005-1.025); Urobilinogen 0.2 EU/dL (Up TO 0.2)
[2020-07-15 21:27] LABS: Epithelial Cells Few HPF (Negative); WBC Negative HPF (0-5)
[2020-07-15 21:28] LABS: Bacteria Rare HPF (Negative); C & S Indicated? No; Casts Negative LPF (Negative); Crystals Negative HPF (Negative); Mucus Negative (Negative)
[2020-07-15 21:31] LABS: C-Reactive Protein 0.29 mg/dL (0.0-0.3)
== END 2020-07-15 21:29 | disposition home or self-care (01) ==
LOC: LBN 21:28
PROVIDERS: PCP Nurse Practitioner; Visit Provider Nurse Practitioner Family
DX: R10.32 Left lower quadrant pain (principal); N39.0 Urinary tract infection, site not specified
CPT/HCPCS: 81003; 81015; 85025; 86140

== ENCOUNTER 2020-08-18 03:10 | Outpatient (CLI) | payer OTHER, SELFPAY ==
[2020-08-19 14:34] LABS: COVID-19 RT-PCR UVMMC Result Positive (Negative)
== END 2020-08-18 03:11 | disposition home or self-care (01) ==
LOC: LBO 03:10
PROVIDERS: PCP Nurse Practitioner; Visit Provider Nurse Practitioner
DX: Z20.822 Contact with and (suspected) exposure to COVID-19 (principal)
CPT/HCPCS: U0003

== ENCOUNTER 2020-08-19 07:39 | Outpatient (CLI) | payer OTHER, SELFPAY ==
[2020-08-20 14:34] LABS: COVID-19 RT-PCR UVMMC Result Negative (Negative)
== END 2020-08-19 07:40 | disposition home or self-care (01) ==
LOC: LBO 07:40
PROVIDERS: PCP Nurse Practitioner; Visit Provider Nurse Practitioner
DX: Z20.822 Contact with and (suspected) exposure to COVID-19 (principal)
CPT/HCPCS: U0003

== ENCOUNTER 2020-08-22 08:17 | Outpatient (CLI) | payer OTHER, SELFPAY ==
[2020-08-24 16:34] LABS: COVID-19 RT-PCR UVMMC Result Negative (Negative)
== END 2020-08-22 08:18 | disposition home or self-care (01) ==
PROVIDERS: PCP Nurse Practitioner; Visit Provider Family Medicine
DX: Z20.822 Contact with and (suspected) exposure to COVID-19 (principal)
CPT/HCPCS: U0003

== ENCOUNTER 2021-06-28 20:21 | Outpatient (REF) | payer OTHER, SELFPAY ==
[2021-06-30 15:52] LABS: COVID-19 RT-PCR UVMMC Result Positive (Negative)
== END 2021-06-28 20:22 | disposition home or self-care (01) ==
LOC: LBN 20:21
PROVIDERS: PCP Nurse Practitioner; Visit Provider Nurse Practitioner Family
DX: J06.9 Acute upper respiratory infection, unspecified (principal); Z20.822 Contact with and (suspected) exposure to COVID-19
CPT/HCPCS: U0003

== ENCOUNTER 2021-09-29 09:33 | Emergency (ER) | payer OTHER, SELFPAY ==
[2021-09-29 09:36] VITALS: BP 131/81; PULSE 72; RESP 16; TEMP 36.6; O2SAT 98
--- NOTE | 2021-09-29 10:00 | DI.US_ITS ---
Exam(s) US LOWER EXTREMITY VENOUS RT EXAM: US LOWER EXTREMITY VENOUS RT CLINICAL HISTORY: calf pain, no injury TECHNIQUE: Grayscale, color, and doppler imaging of the deep venous system of the right lower extrem ity was performed. COMPARISON: No exams were available for comparison FINDINGS: There is no evidence of intraluminal thrombus and there is normal compression and augmentation demons trated within the common femoral vein, femoral vein, and popliteal vein. In the ipsilateral calf the interrogated veins also exhibit normal compression/ augmentation properti es. The ipsilateral saphenofemoral junction is patent. IMPRESSION: 1. No evidence of DVT in the RIGHT lower extremity. DATA REPOSITORY:
[2021-09-29 10:02] VITALS: RESP 17
--- NOTE | 2021-09-29 10:06 | W.ED.GENAD ---
Discharge Plan Disposition Patient Disposition: HOME Condition: Stable Discharge Details Clinical Impression: Back pain with right-sided radiculopathy Primary Care Provider: Essence Aranda ED Provider: Jamie Sena Home Meds and New Rx's Prescriptions: Continued ibuprofen 800 mg tablet 800 mg PO TID PRN Nexplanon 68 mg implant 1 implant SBD ONCE Qty: 1 0RF Rx Instructions: as a single dose Zyrtec 10 mg capsule 10 mg PO DAILY PRN epinephrine [EpiPen 2-Dante] 0.3 mg/0.3 mL auto-injector 0.3 mg IM as directed Qty: 1 0RF omeprazole 20 mg capsule,delayed release(DR/EC) 20 mg PO DAILY PRN (Reason: gerd) Qty: 30 11RF diphenhydramine HCl 50 mg Capsule 50 mg PO HS Discharge Instructions Instructions: Back Pain (ED) Additional Instructions: Ultrasound of your right lower extremity is unremarkable. [id number] Tylenol and/or Motrin as directed for discomfort. Gentle stretching as tolerated. Cool and/or warm compresses every 2 hours for 20 minutes. Please watch for new or worsening symptoms and return to the ER for any concerns. Otherwise I recommend reaching out to your primary care provider later today to discuss your ER visit, need for outpatient evaluation and further work-up of your ongoing symptoms Medical Decision Making 41-year-old female who reports occasional acute on chronic back pain flareups, reports right lower back pain that began on Saturday, subsequently had some shooting pain and paresthesias down her right leg which is not completely atypical for these flareups. Later she developed what she describes as a ongoing aching charley horse in her right lower extremity. She is concerned of DVT. Denies history of DVT or PE. Denies fever, chest pain, shortness of breath, cough, hemoptysis, change in bowel or bladder function. Clinically she appears well, nontoxic, hemodynamically stable, lungs clear to auscultation. Clinically her right lower extremity is unremarkable, negative Homans' sign, low suspicion for DVT. This would appear more of right lower back pain with radiculopathy. No evidence of cauda equina. Will obtain ultrasound of the right lower extremity and reassess Ultrasound of the right lower extremity unremarkable. Standard discharge and return precautions were provided. Patient understands, is agreeable to this plan, and has no additional questions or concerns upon discharge. This documentation was generated using [employer] dictation system, please disregard any oddities of phrase or misspellings. Medical Records Medical records reviewed: Yes I reviewed the patient's medical records. Imaging Data Radiologic Study: Attestation: I personally reviewed and interpreted this imaging study as follows: Imaging: Ultrasound Radiologist's impression: Exam(s) US LOWER EXTREMITY VENOUS RT EXAM: US LOWER EXTREMITY VENOUS RT CLINICAL HISTORY: calf pain, no injury TECHNIQUE: Grayscale, color, and doppler imaging of the deep venous system of the right lower extremity was performed. COMPARISON: No exams were available for comparison FINDINGS: There is no evidence of intraluminal thrombus and there is normal compression and augmentation demonstrated within the common femoral vein, femoral vein, and popliteal vein. In the ipsilateral calf the interrogated veins also exhibit normal compression/ augmentation properties. The ipsilateral saphenofemoral junction is patent. IMPRESSION: 1. No evidence of DVT in the RIGHT lower extremity. HPI General Mode of arrival: ambulatory. Date/Time Provider Initiated Documentation: 09/29/21 09:40. Limitations to Documentation: no limitations. Information obtained by: patient. History of Present Illness 41 year old F presents to the emergency department with the chief complaint of Pain in R calf, described as moderate, with intensity rated at 4. Quality is described as aching, and is localized to the right and lower extremity. Patient reports no radiation. Patient started experiencing this day(s) (4) and it has been constant. No relieving factors improve symptom(s), Movement worsens symptoms . Patient notes other (back pain). Patient did receive the following treatments prior to arrival, none Related Data Home Medications Medication Instructions Recorded Confirmed ibuprofen 800 mg tablet 800 mg PO TID PRN 04/03/19 09/29/21 etonogestrel 68 mg subdermal 1 implant subdermal ONCE #1 ea 06/17/19 09/29/21 implant (Nexplanon) epinephrine 0.3 mg/0.3 mL 0.3 mg (0.3 mL) IM as directed ##1 12/04/19 09/29/21 injection, auto-injector (EpiPen 2-Dante) omeprazole 20 mg capsule,delayed 20 mg PO DAILY PRN gerd #30 12/28/19 09/29/21 release tab-caps cetirizine 10 mg capsule (Zyrtec) 10 mg PO DAILY PRN 07/14/20 09/29/21 diphenhydramine HCl 50 mg capsule 50 mg PO HS 09/29/21 09/29/21 Previous Rx's Medication Instructions Recorded etonogestrel 68 mg subdermal 1 implant subdermal ONCE #1 ea 06/17/19 implant (Nexplanon) epinephrine 0.3 mg/0.3 mL 0.3 mg (0.3 mL) IM as directed ##1 12/04/19 injection, auto-injector (EpiPen 2-Dante) omeprazole 20 mg capsule,delayed 20 mg PO DAILY PRN gerd #30 12/28/19 release tab-caps Allergies Allergy/AdvReac Type Severity Reaction Status Date / Time shellfish derived Allergy Severe Verified 09/29/21 09:41 wheat Allergy Intermediate TIGHTENING Verified 09/29/21 09:41 OF THROAT latex Allergy Mild SKIN RASH Verified 09/29/21 09:41 Penicillins Allergy Mild HIVES Verified 09/29/21 09:41 amoxicillin Allergy Unknown HIVES Verified 09/29/21 09:41 egg Allergy Unknown Verified 09/29/21 09:41 milk Allergy Unknown Verified 09/29/21 09:41 lactose AdvReac Mild DIARRHEA Verified 09/29/21 09:41 melons Allergy Severe Itching Uncoded 09/29/21 09:41 ADHESIVE TAPE Allergy Mild SKIN RASH Uncoded 09/29/21 09:41 ANIMAL DANDER Allergy Unknown Uncoded 09/29/21 09:41 MOLDS AND SMUTS Allergy Unknown Uncoded 09/29/21 09:41 General Stated Complaint: Vascular MARCUS: 3 Review of Systems Constitutional Constitutional: Denies fever(s) and Denies weakness Cardiovascular Cardiovascular: Denies chest pain and Denies dyspnea Respiratory Respiratory: Denies cough and Denies dyspnea Gastrointestinal Gastrointestinal: Reports abdominal pain, Denies nausea and Denies vomiting Musculoskeletal Musculoskeletal: Reports back pain, Denies numbness, Reports stiffness and Reports tingling Integumentary/Breasts Skin/Breast: Denies rash Neurologic Neurologic: Denies numbness, Reports tingling and Denies weakness PFSH All Active Problems (Updated 09/29/21 @ 11:01 by MANULE Dillard) Back pain with right-sided radiculopathy (Acute) COVID-19 (Acute) 07/03/21 Financial difficulties (Acute) Left lower quadrant abdominal pain (Acute) Abnormal mammogram (Acute) left Nexplanon in place (Acute) Anxiety (Chronic) Depressive disorder (Acute) Gastroesophageal reflux (Acute 10/27/13) Obesity (Acute) Medical History Anaphylactic reaction due to shellfish (10/27/13) Bipolar 2 disorder Contraceptive management Mirena IUD 08/2014. Depression History of tobacco use Family History Mother Stroke alive. went on to have 2 SVDs after CVA. Pt unaware of thrombophilia w/u. Father Depression Heart disease Myocardial infarction Sister Substance abuse Sister Substance abuse Brother No problems noted. Grandfather Stroke Grandfather No problems noted. Grandmother Stroke Grandmother No problems noted. Daughter Depression Daughter No problems noted. Social History Smoking/Tobacco Use Status: Former Tobacco Use Smoking risk assessment performed?: Yes Drug use: Never Substance use type: does not use Household members: children and other Details: . Not relationship. 2 daughters Roslyn 22yo, [id number] Number of Children: 2 number of grandchildren: 1 current occupation: Works at [employer] Do you feel safe at home: Yes Do you feel safe in your relationship?: Yes Additional Social history: Granddaughter-Luzma Female Reproductive History Menstrual control method: none History History 4 Para 2 Hx # Term Pregnancies Multiple births Hx # Pregnancies Ectopic pregnancies AB induced Hx Number of Living Children AB spontaneous Exam Const General: cooperative, healthy appearing, comfortable and no acute distress Orientation: alert and awake [facility] [place] Head: normal to inspection, normocephalic and atraumatic Eyes Conjunctivae: conjunctivae normal Neck Neck: normal visual inspection, full ROM, trachea midline and supple Resp Effort & Inspection: normal respiratory effort and able to speak in complete sentences Auscultation: clear to auscultation bilaterally Cardio Rate: regular rate Rhythm: regular rhythm Back/Spine/Pelvis Back: no CVA tenderness and back tenderness (Diffuse, mild, right-sided) Skin General skin exam: no rashes or lesions noted Neuro General: patient alert, patient awake, moves all extremities and no focal motor deficits Cognition: normal cognition Speech: speech normal Gait: normal gait Motor: muscle tone normal throughout and strength 5/5 throughout Sensory Exam: no sensory deficits noted Extrem General: normal to inspection, full ROM, capillary refill normal, no pedal edema, no calf tenderness and other (Right leg negative Marisol sign) Psych Appearance: grossly normal Mental Status: mental status grossly normal Course Vital Signs Vital signs: Vital Signs Temperature 36.6 C 09/29/21 09:36 Pulse 72 09/29/21 09:36 Respiratory Rate 16 09/29/21 09:36 Blood Pressure 131/81 09/29/21 09:36 Pulse Oximetry 98 09/29/21 09:36 Temperature 36.6 C 09/29/21 09:36 Temperature Source Temporal Artery Scan 09/29/21 09:36 Pulse 72 09/29/21 09:36 Respiratory Rate 16 09/29/21 09:36 Respiratory Effort 09/29/21 09:40 Blood Pressure 131/81 09/29/21 09:36 Blood Pressure Position Sitting 09/29/21 09:36 Pulse Oximetry 98 09/29/21 09:36 Oxygen Delivery Method Room Air 09/29/21 09:36 Oxygen Flow Rate 0 09/29/21 09:36 Pain Level 3 09/29/21 09:36
== END 2021-09-29 11:06 | disposition home or self-care (01) ==
PROVIDERS: Emergency Provider Physician Assistant; PCP Nurse Practitioner
DX: M54.16 Radiculopathy, lumbar region (principal); M79.661 Pain in right lower leg
CPT/HCPCS: 99284; 93971; 99283

== ENCOUNTER 2022-03-16 13:13 | Outpatient (REF) | payer OTHER, SELFPAY | END 2022-03-16 13:14 | disposition home or self-care (01) | LOC: LBN 13:13 | PROVIDERS: PCP Nurse Practitioner Family; Visit Provider Nurse Practitioner Family | DX: B77.9 Ascariasis, unspecified (principal) | CPT/HCPCS: 87177 ==

== ENCOUNTER 2022-09-05 07:53 | Outpatient (CLI) | payer OTHER, SELFPAY ==
--- NOTE | 2022-09-05 07:45 | RT.EKG_ITS ---
APPROVED REPORT Exam: Resting ECG Reason for Exam: Chest pain Patient Location: O HR:66 bpm ECG Measurements Heart Rate 66 AXIS ND 139 P 54 QRSd 96 QRS 27 QT 413 T 19 QTc 433 Conclusion Sinus rhythm...normal P axis, V-rate 50- 99 Normal Electrocardiogram
== END 2022-09-05 07:54 | disposition home or self-care (01) ==
LOC: DI.CM 07:53
PROVIDERS: PCP Nurse Practitioner Family; Visit Provider Family Medicine
DX: R07.9 Chest pain, unspecified (principal)
CPT/HCPCS: 93010

== ENCOUNTER 2022-09-05 08:35 | Outpatient (CLI) | payer OTHER, SELFPAY ==
[2022-09-05 12:21] LABS: Calculated LDL 135 mg/dL (<100); Cholesterol 232 mg/dL (<200); Glucose 91 mg/dL (74-106); HDL Cholesterol 75 mg/dL (40-60); Triglyceride 112 mg/dL (<150)
== END 2022-09-05 08:36 | disposition home or self-care (01) ==
LOC: LOS 08:35
PROVIDERS: PCP Nurse Practitioner Family; Referring Provider Family Medicine; Visit Provider Family Medicine
DX: E78.5 Hyperlipidemia, unspecified (principal); R73.9 Hyperglycemia, unspecified
CPT/HCPCS: 36415; 80061; 82947

== ENCOUNTER 2022-09-13 01:27 | Outpatient (CLI) | payer OTHER, SELFPAY ==
--- NOTE | 2022-09-13 06:30 | DI.MAMMO_ITS ---
Exam(s) MAMMO SCREENING EXAM: MAMMO SCREENING CLINICAL HISTORY: screening,z12.39 TECHNIQUE: Bilateral full field digital CC and MLO mammographic images were obtained with 3D tomosyn thesis and utilizing computer aided detection (CAD). COMPARISON: Available for comparison. FINDINGS: Masses/Architectural Distortion: There is stable left breast nodules. No suspicious nodules or areas of architectural distortion are seen. Microcalcifications: No suspicious pleomorphic-type are seen. Skin Thickening/Nipple Retraction: None. IMPRESSION: 1. No significant interval change with no specific features of malignancy noted. 2. Unless there is more urgent need, screening mammography is recommended, as per [place] guidelines. BI-RADS Category 2 - Benign Findings Breast Density - Category B - Scattered areas of fibroglandular density Breast density category C or D implies that the patient has dense breast tissue. Dense breast tissue is very common and is not abnormal but dense breast tissue can make it harder to find cancer on a ma mmogram. Also, dense breast tissue may increase their breast cancer risk. This information about the result of the mammogram report was provided to the patient to raise their awareness. Use this report when you speak with the patient about their risks for breast cancer, which includes their family hist ory. At that time, you may recommend for more screening tests (Ultrasound or MRI) as they might be us eful based on their risk. A negative radiographic report should not delay biopsy if a dominant or clinically suspicious mass is present. Up to ten percent of cancers are not identified on mammography. A negative report may reinforce clinical impression. Adenosis and dense breasts may obscure an underlying neoplasm. False positive reports average 6 to 10%. Patient will receive a letter notifying them of these results.
--- NOTE | 2022-09-13 06:30 | DI.US_ITS ---
Exam(s) US PELVIS TRANSVAGINAL EXAM: US PELVIS TRANSVAGINAL CLINICAL HISTORY: anatomy,dysfunctional uterine bleeding,mn93.8. TECHNIQUE: Transabdominal and transvaginal pelvic ultrasound was performed using standard protocol. COMPARISON: US PELVIS TRANSVAG {[id number]} from 05/25/2015 FINDINGS: UTERUS: Position: Anteverted. Size: 8.7 long by 4.7 AP by 5.3 transverse cm Endometrium: 0.5 cm. Normal for patient's menstrual status. Myometrium: Unremarkable. Cervix: There is a cervical nabothian cyst present. OVARIES: Right: 1.6 x 1.5 x 1.1 cm Cyst or mass: No suspicious cystic or solid masses. Left: 2.6 x 3 x 1.9 cm Cyst or mass: No suspicious cystic or solid masses. There is a 1.7 cm follicle. DOPPLER: Color: Symmetric and uniform flow to both ovaries. CUL-DE-SAC: Free fluid: None. Other: None. IMPRESSION: 1. Normal-appearing uterus with endometrial stripe within normal limits. 2. Unremarkable bilateral ovaries. DATA REPOSITORY:
== END 2022-09-13 01:47 ==
LOC: DI 01:27
PROVIDERS: PCP Nurse Practitioner Family; Visit Provider Obstetrics & Gynecology
DX: N93.8 Other specified abnormal uterine and vaginal bleeding (principal); Z12.31 Encounter for screening mammogram for malignant neoplasm of breast
CPT/HCPCS: 77063; 77067; 76830; 76856

== ENCOUNTER 2024-01-28 09:05 | Day surgery (SDC) | payer OTHER, SELFPAY ==
[2024-01-28 09:36] VITALS: BP 132/94; PULSE 72; RESP 16; TEMP 36.3; O2SAT 99
[2024-01-28] MEDS: Lactated Ringers 1,000 ML 80 ML IV (10:02)
--- NOTE | 2024-01-28 10:19 | W.ANESPRE ---
General Info Date of Service Date Performed: 01/28/24 Height: 5 ft 1.5 in Weight: 93.1 kg Body Mass Index (BMI): 38.1 Surgical Procedure: Operation Date: 01/28/24 10:35 Proposed Procedure Side Surgeon yaw Fleming MD Meds Allergies and Home Medications Allergies Allergy/AdvReac Type Severity Reaction Status Date / Time shellfish derived Allergy Severe Anaphylaxis Verified 01/28/24 09:34 wheat Allergy Intermediate TIGHTENING Verified 01/28/24 09:34 OF THROAT latex Allergy Mild SKIN RASH Verified 01/28/24 09:34 Penicillins Allergy Mild HIVES Verified 01/28/24 09:34 amoxicillin Allergy Unknown HIVES Verified 01/28/24 09:34 egg Allergy Unknown Other (See Verified 01/28/24 09:34 Comment) milk Allergy Unknown Other (See Verified 01/28/24 09:34 Comment) lactose AdvReac Mild DIARRHEA Verified 01/28/24 09:34 melons Allergy Severe Itching Uncoded 01/28/24 09:34 ADHESIVE TAPE Allergy Mild SKIN RASH Uncoded 01/28/24 09:34 ANIMAL DANDER Allergy Unknown Itching Uncoded 01/28/24 09:34 MOLDS AND SMUTS Allergy Unknown Itching Uncoded 01/28/24 09:34 Home Medication ?Medication ?Instructions ?Recorded ibuprofen 800 mg tablet 800 mg PO TID PRN 04/03/19 loratadine 10 mg tablet (Allergy 10 mg PO DAILY 11/10/22 Relief (loratadine)) omeprazole 20 mg capsule,delayed 20 mg PO DAILY PRN gerd #90 11/10/22 release tab-caps epinephrine 0.3 mg/0.3 mL 0.3 mg (0.3 mL) IM as directed ##1 11/26/23 injection, auto-injector (EpiPen 2-Dante) ascorbic acid (vitamin C) 1,000 mg 1 g PO Q6H 01/15/24 capsule cetirizine 10 mg tablet 10 mg DAILY Allergies 01/28/24 Current Visit Medications: Current Medications Generic Name Dose Route Start Last Admin Trade Name Freq PRN Reason Stop Dose Admin Ringer's Solution 1,000 mls @ 80 mls/hr 01/28/24 06:00 01/28/24 10:02 IV 02/26/24 23:59 80 mls/hr INFUSION GINGER Administration IV Miscellaneous Supplies 1 each 01/28/24 06:00 Iv Access IV 02/26/24 23:59 DIRECTED GINGER Sodium Chloride 0 ml 01/28/24 06:00 Normal Saline Flush 10 Ml Syr IV 02/26/24 23:59 PRN PRN Sodium Chloride 0 ml 01/28/24 06:00 Normal Saline 10 Ml Vial IJ 02/26/24 23:59 DIRECTED PRN Sterile Water 0 ml 01/28/24 06:00 Water,Injection,Sterile 10 Ml Vial IJ 02/26/24 23:59 DIRECTED PRN PFSH Active Problems Active Problems: Problem Status Onset Code Acute diverticulitis Acute K57.92 Migraines Chronic G43.909 DUB (dysfunctional uterine bleeding) Acute N93.8 Encounter for Nexplanon removal Acute Z30.46 Vertigo Acute R42 Abnormal mammogram Acute R92.8 Anxiety Chronic F41.9 Depressive disorder Acute F32.9 Gastroesophageal reflux Acute 10/27/13 K21.9 Obesity Acute E66.9 Medical History Medical History Shoulder pain, left COVID-19 07/03/21 New onset-07/15/22 Financial difficulties Nexplanon in place Anaphylactic reaction due to shellfish (10/27/13) History of tobacco use Depression Contraceptive management Mirena IUD 08/2014. Bipolar 2 disorder Tobacco Smoking/Tobacco Use Status: Former Tobacco Use Passive smoking exposure: No Substance Use Substance use: Never Substance use type: does not use Prental History History 4 Para 2 Hx # Term Pregnancies Multiple births Hx # Pregnancies Ectopic pregnancies AB induced Hx Number of Living Children AB spontaneous Vital Signs and Lab Results Vital Signs Most Recent Vital Signs in EMR: Most Recent Vital Signs Temp Pulse Resp BP Pulse Ox 36.3 C L 72 16 132/94 H 99 01/28/24 09:36 01/28/24 09:36 01/28/24 09:36 01/28/24 09:36 01/28/24 09:36 Lab Results Blood Type / Crossmatch: No Data to Display Complete Blood Count: No Data to Display Complete Metabolic Panel: No Data to Display Liver Function Panel: No Data to Display Coagulation Panel: No Data to Display Cardiac Panel: No Data to Display Arterial Blood Gas: No Data to Display Venous Blood Gas: No Data to Display Pancreas Panel: No Data to Display Thyroid Panel: No Data to Display Infectious Disease: No Data to Display Blood Cultures: No Data to Display Toxicology Panel: No Data to Display Panel: No Data to Display Anesthesia Assessment and Plan Anesthesia History Personal History: No History of Anesthesia Complications Family History: No Family History of Anesthesia Complications Exercise Tolerance Exercise Tolerance: Metabolic Equivalents>4 Pertinent Negatives Pertinent Negatives: No Symptoms of GERD, No Major Cardiovascular Symptoms or Complaints, No Major Pulmonary Symptoms or Complaints and No History of CVA/TIA Cardiac & Pulmonary Exam Cardiac Exam: Normal S1/S2 Heart Sounds Pulmonary Exam: Clear Bilateral Breath Sounds Implantable Cardiac Device Does patient have a Pacemaker or an ICD?: No Airway Exam Known Difficult Airway: No Mallampati Class: 2 Mouth Opening: Normal (> 3cm) Thyromental Distance: Greater than 3 cm Neck Range of Motion: Full ROM Neck Circumference: Normal Teeth Condition: Normal Dentition ASA Classification ASA Score: ASA 2 Emergency Case?: No NPO Status NPO Status: NPO Clears >2 hours, Solids >8 hours Status Status: Pt. refuses testing, she was counseled on anesthesia risks Anesthesia Plan Resuscitation Status: Full Code Anesthesia Technique: General Anesthesia Airway Planned: Natural Airway Monitors Used: Standard Monitors
[2024-01-28 10:21] VITALS: BMI 38.1
--- NOTE | 2024-01-28 10:26 | COLE_ITS ---
Date of service: 01/28/24 Time of Service: 10:26 Colonoscopy Report Procedure Description: PROCEDURES PERFORMED: 1. Colonoscopy PREOPERATIVE DIAGNOSIS: Surveillance colonoscopy POSTOPERATIVE DIAGNOSIS: Extensive left?sided diverticulosis, grade 1 internal hemorrhoids SURGEON: Niurka Fleming MD INDICATION for procedure: The patient is a 43-year-old woman due for her for screening colonoscopy. She has a history of multiple diverticulitis attacks that have resolved with antibiotic therapy. She has no family history of colon cancer. FINDINGS: Normal terminal ileum. No polyps. Diverticular changes present throughout the left side of the colon, most?focused in the sigmoid region. No stricture or fibrosis and no active inflammation. Mild grade 1 internal hemorrhoids are present. SURVEILLANCE interval/FOLLOW-UP: 10 years for colorectal cancer surveillance/scr eening SPECIMENS: No EBL: Minimal COMPLICATIONS: None QUALITY of prep: Excellent Procedure in detail: The patient gave written consent and was in agreement with the indications, the potential risks as well as the benefits of the procedure. They were taken to the endoscopy suite and laid in the left lateral decubitus position. A timeout was performed and anesthesia was administered which was tolerated well. I started the procedure. Digital rectal and visual examination was performed and grossly within normal limits. A well-lubricated flexible colonoscope was then introduced and passed without any notable difficulty all the way to the cecum identified by the ileocecal valve and the appendiceal orifice. The terminal ileum was briefly intubated and looked normal. The scope was then slowly withdrawn with the above-noted findings. The patient tolerated the procedure well and was taken to the PACU in hemodynamically stable condition.
--- NOTE | 2024-01-28 10:27 | W.PM.DSUDISC ---
Date of service: 01/28/24 Time of Service: 10:27 Discharge Plan Disposition Patient Disposition: Home Condition: Good Discharge Details Attending Provider: Rocky Fleming Primary Care Provider: aJx Sanchez Home Meds and New Rx's Prescriptions: No Action ibuprofen 800 mg tablet 800 mg PO TID PRN epinephrine [EpiPen 2-Dante] 0.3 mg/0.3 mL auto-injector 0.3 mg IM as directed Qty: 1 0RF loratadine [Allergy Relief (loratadine)] 10 mg tablet 10 mg PO DAILY omeprazole 20 mg capsule,delayed release(DR/EC) 20 mg PO DAILY PRN (Reason: gerd) Qty: 90 4RF ascorbic acid (vitamin C) 1,000 mg capsule 1 g PO Q6H cetirizine 10 mg tablet 10 mg DAILY Discharge Instructions Additional Instructions: FINDINGS: No polyps were found. No inflammation anywhere which is good news. Of course diverticulosis was seen which is fairly extensive in your left and sigmoid colon. As you are aware, this is a benign, common condition and nothing needs to be done about it as long as you do not continue to have attacks. At any given point, surgical resection/removal of the diseased part can be considered if and when it becomes a worsening problem for you. This is an elective decision in most circumstances. You should repeat another colonoscopy in 10 years. Stand Alone Forms: Colonoscopy Post Instructions Activity:: Activity as Tolerated Diet:: As Tolerated
[2024-01-28 10:54] VITALS: BP 128/94; PULSE 71; RESP 16; TEMP 36.3; O2SAT 96
[2024-01-28 11:21] VITALS: BP 129/75; PULSE 70; RESP 16; TEMP 36.3; O2SAT 97
--- NOTE | 2024-01-28 11:40 | W.ANESPOSTOP ---
Postoperative Evaluation Date, Time and Location Date Performed: 01/28/24 Time Performed: 11:40 Patient Location: Day Surgery Unit Vital Signs Most Recent Imported Vital Signs: Most Recent Vital Signs Temp Pulse Resp BP Pulse Ox 36.3 C L 70 16 129/75 97 01/28/24 11:21 01/28/24 11:21 01/28/24 11:21 01/28/24 11:21 01/28/24 11:21 Pain Score Most Recent Pain Score: Most Recent Pain Score Pain Level 0 01/28/24 11:21 Assessment Mental Status: Awake (Alert & Oriented to Patient Baseline) Airway and Respiratory Function: Patent airway with normal (patient baseline) respiratory exam Cardiovascular Function: Hemodynamically Stable Hydration Status: Adequately Hydrated Nausea & Vomiting: No Nausea or Vomiting Pain: Pt. Denies Any Pain Peripheral Nerve Block: Patient did not receive a nerve block
== END 2024-01-28 11:59 | disposition home or self-care (01) ==
PROVIDERS: PCP Nurse Practitioner Family; Visit Provider Student in an Organized Health Care Education/Training Program
PROC: 0DJD8ZZ Inspection of Lower Intestinal Tract, Via Natural or Artificial Opening Endoscopic (ICD-10-PCS; CPT 45378; principal; 2024-01-28 10:30)
DX: Z12.11 Encounter for screening for malignant neoplasm of colon (principal); K57.30 Diverticulosis of large intestine without perforation or abscess without bleeding; K64.0 First degree hemorrhoids
CPT/HCPCS: 45378; 00123; J2704

== ENCOUNTER 2024-07-17 10:55 | Emergency (ER) | payer OTHER, SELFPAY ==
--- NOTE | 2024-07-17 10:45 | RT.EKG_ITS ---
APPROVED REPORT Exam: Resting ECG Reason for Exam: ? Patient Location: E HR:71 bpm ECG Measurements Heart Rate 71 AXIS DE 130 P 75 QRSd 84 QRS 51 QT 396 T 42 QTc 430 Conclusion Sinus rhythm...normal P axis, V-rate 60- 99 I have reviewed and interpreted ECG and agree with software generated interpretation.
[2024-07-17 10:59] VITALS: BP 143/100; PULSE 99; RESP 20; TEMP 36.8; O2SAT 99
--- NOTE | 2024-07-17 11:19 | W.ED.GENAD ---
Discharge Plan Disposition Patient Disposition: Home Condition: Good Discharge Details Clinical Impression: Arm pain, left, Muscle spasm, Acute neck pain Primary Care Provider: Jax Sanchez ED Provider: Taya Curry Home Meds and New Rx's Prescriptions: Continued ibuprofen 800 mg tablet 800 mg PO TID PRN epinephrine [EpiPen 2-Dante] 0.3 mg/0.3 mL auto-injector 0.3 mg IM as directed Qty: 1 0RF fluticasone propionate [Flonase Allergy Relief] 50 mcg/actuation spray,suspension 1 spray intranasal Q12H Qty: 16 0RF Rx Instructions: administer into each nostril buspirone 10 mg tablet 10 mg PO BID PRN (Reason: anxiety) Qty: 60 0RF Nexplanon 68 mg implant 1 implant subdermal ONCE Qty: 1 0RF Rx Instructions: as a single dose loratadine [Allergy Relief (loratadine)] 10 mg tablet 10 mg PO DAILY ascorbic acid (vitamin C) 1,000 mg capsule 1 g PO Q6H cyclobenzaprine 10 mg tablet 10 mg PO TID PRN (Reason: muscle spasm) Qty: 10 0RF omeprazole 20 mg capsule,delayed release(DR/EC) 20 mg PO DAILY PRN (Reason: gerd) Qty: 90 4RF cetirizine 10 mg tablet 10 mg PO DAILY Discharge Instructions Instructions: Neck Pain Exercises, Muscle Spasm ED Additional Instructions: As we discussed, your imaging and labs are reassuring here today. I do not believe that your discomfort is associated with the implant nor does your CARE TRANSPORT NURSE. However, your pain seems to be most exacerbated when I am doing testing for your C-spine and particularly nerves coming out are often affected by muscle spasm. Without you having have any trauma, I do not believe that you need to be assessed for any fractures in your neck. However, I do believe that you need to work on your range of motion, gentle stretching. Heat and or ice can help with this. Heat prior to stretching can also help to loosen the muscles. Please continue with Tylenol and ibuprofen as needed for discomfort. Please take as directed on the packaging. You may continue with the lidocaine patches or other topical options to help with discomfort but please do not put heat directly over these. You may use the muscle relaxant as prescribed by your CARE TRANSPORT NURSE. Please not drink alcohol or drive while using these medications and take only as prescribed. If you develop any weakness, sensory change or other new/worsening symptom please seek care urgently once again. Otherwise, please follow-up with primary care in 1 week for reevaluation. Stand Alone Forms: Work Release Referrals: Jax Sanchez NP [Primary Care Provider] - [facility] General Date/Time Provider Initiated Documentation: 07/17/24 11:19. Limitations to Documentation: no limitations. Information obtained by: patient, RN notes reviewed and old records reviewed. History of Present Illness 44 year old F presents to the emergency department with the chief complaint of left arm pain, radiating upward to neck, described as severe, Quality is described as stabbing, and is localized to the neck, left and upper extremity. Patient extremity. Patient started experiencing this day(s) and it has been intermittent. Immobilization improves symptom(s), (certain position exacerbate or improve) Movement worsens symptoms . Patient notes no other symptoms.. Patient did receive the following treatments prior to arrival, none Related Data Home Medications ?Medication ?Instructions ?Recorded ?Confirmed ibuprofen 800 mg tablet 800 mg PO TID PRN 04/03/19 07/17/24 loratadine 10 mg tablet (Allergy 10 mg PO DAILY 11/10/22 07/17/24 Relief (loratadine)) epinephrine 0.3 mg/0.3 mL 0.3 mg (0.3 mL) IM as directed ##1 11/26/23 07/17/24 injection, auto-injector (EpiPen 2-Dante) ascorbic acid (vitamin C) 1,000 mg 1 g PO Q6H 01/15/24 07/17/24 capsule cetirizine 10 mg tablet 10 mg PO DAILY Allergies 01/28/24 07/17/24 omeprazole 20 mg capsule,delayed 20 mg PO DAILY PRN gerd #90 03/18/24 07/17/24 release tab-caps fluticasone propionate 50 1 spray intranasal Q12H #16 grams 06/04/24 07/17/24 mcg/actuation nasal spray,suspension (Flonase Allergy Relief) buspirone 10 mg tablet 10 mg PO BID PRN anxiety #60 tabs 07/03/24 07/17/24 etonogestrel 68 mg subdermal 1 implant subdermal ONCE #1 ea 07/16/24 07/17/24 implant (Nexplanon) cyclobenzaprine 10 mg tablet 10 mg PO TID PRN muscle spasm #10 07/17/24 07/17/24 tabs Previous Rx's ?Medication ?Instructions ?Recorded epinephrine 0.3 mg/0.3 mL 0.3 mg (0.3 mL) IM as directed ##1 11/26/23 injection, auto-injector (EpiPen 2-Dante) omeprazole 20 mg capsule,delayed 20 mg PO DAILY PRN gerd #90 03/18/24 release tab-caps fluticasone propionate 50 1 spray intranasal Q12H #16 grams 06/04/24 mcg/actuation nasal spray,suspension (Flonase Allergy Relief) buspirone 10 mg tablet 10 mg PO BID PRN anxiety #60 tabs 07/03/24 etonogestrel 68 mg subdermal 1 implant subdermal ONCE #1 ea 07/16/24 implant (Nexplanon) cyclobenzaprine 10 mg tablet 10 mg PO TID PRN muscle spasm #10 07/17/24 tabs Allergies Allergy/AdvReac Type Severity Reaction Status Date / Time shellfish derived Allergy Severe Anaphylaxis Verified 07/17/24 11:03 wheat Allergy Intermediate TIGHTENING Verified 07/17/24 11:03 OF THROAT latex Allergy Mild SKIN RASH Verified 07/17/24 11:03 Penicillins Allergy Mild HIVES Verified 07/17/24 11:03 amoxicillin Allergy Unknown HIVES Verified 07/17/24 11:03 egg Allergy Unknown Other (See Verified 07/17/24 11:03 Comment) milk Allergy Unknown Other (See Verified 07/17/24 11:03 Comment) lactose AdvReac Mild DIARRHEA Verified 07/17/24 11:03 melons Allergy Severe Itching Uncoded 07/17/24 11:03 ADHESIVE TAPE Allergy Mild SKIN RASH Uncoded 07/17/24 11:03 ANIMAL DANDER Allergy Unknown Itching Uncoded 07/17/24 11:03 MOLDS AND SMUTS Allergy Unknown Itching Uncoded 07/17/24 11:03 General Stated Complaint: Nk/Back Pain MARCUS: 3 Review of Systems Constitutional Constitutional: Reports as per HPI, Denies chills, Denies fever(s), Denies headache(s) and Denies weakness ENT Ears, Nose, Mouth, and Throat: Denies headache(s) Cardiovascular Cardiovascular: Reports as per HPI Respiratory Respiratory: Reports as per HPI and Denies cough Musculoskeletal Musculoskeletal: Reports as per HPI and Denies tingling Integumentary/Breasts Skin/Breast: Reports as per HPI, Denies rash and Denies wounds Neurologic Neurologic: Reports as per HPI, Denies headache(s), Denies tingling, Denies paresthesias and Denies weakness Exam Const General: cooperative, healthy appearing, uncomfortable, no acute distress, well developed and well groomed Nutritional Appearance: average body habitus and well nourished Orientation: alert and awake Neck Neck: normal visual inspection, no meningeal signs, trachea midline, no anterior neck swelling and other (Pain with palpation over the trapezius, positive Spurling's to the left) Chest Chest: normal inspection of the chest Resp Effort & Inspection: normal respiratory effort, able to speak in complete sentences and no respiratory distress Auscultation: clear to auscultation bilaterally Cardio Rate: regular rate Rhythm: regular rhythm Heart Sounds: S1 normal and S2 normal Skin General skin exam: ecchymosis (Over recent Implanon insertion area, appears to be fading no erythema) Neuro General: patient alert and patient awake Cranial Nerves: CN's II-XI intact bilaterally Cognition: normal cognition Speech: speech normal Gait: normal gait Motor: muscle tone normal throughout Sensory Exam: no sensory deficits noted Extrem General: normal to inspection, full ROM, capillary refill normal, no joint enlargement, no clubbing, cyanosis or edema, normal gait, no clubbing and no edema Course Vital Signs Vital signs: Vital Signs Temperature 36.8 C 07/17/24 10:59 Pulse 99 H 07/17/24 10:59 Respiratory Rate 20 07/17/24 10:59 Blood Pressure 143/100 H 07/17/24 10:59 Pulse Oximetry 99 07/17/24 10:59 Temperature 36.8 C 07/17/24 10:59 Pulse 99 H 07/17/24 10:59 Respiratory Rate 20 07/17/24 10:59 Blood Pressure 143/100 H 07/17/24 10:59 Pulse Oximetry 99 07/17/24 10:59 Oxygen Delivery Method Room Air 07/17/24 10:59 Oxygen Flow Rate 0 07/17/24 10:59 Medical Decision Making Patient is a pleasant 44 year RHD female, presenting today with c/c of LUE pain. Underwent Nexplanon placement 8 days ago, had been feeling well until yesterday when pain began. Pain can be very sharp and severe with certain movements, finds having arm over head releaves. No fevers/chills. Was seen by WW who did not believe Nexplanon showed evidence of infection or displacement per patient, they recommended evaluation here. Patient is a non-smoker. No CP, no SOB. She denies any recent trauma. Has not had discomfort like this historically. She is not having any chest pain or shortness of breath. Pain is more in the left upper shoulder, radiating down the arm as well as towards the left side of the neck. She is not noted any previous issues with her neck, no previous prior surgeries. On exam the patient appears uncomfortable, particularly with certain movements of the left shoulder. She is neurovascularly intact. 2+ distal pulses. I do not note any neurological deficits at this point. Sensation is intact. Isolated nerve testing is intact. However, patient does have increased discomfort with palpation over the trapezius on the left side as well as positive Spurling's test with the head tipped back into the left. Based on the patient's history, I do not see need for imaging of the neck despite a potential cause of some of her symptoms emanating from the neck she has not had any trauma or cause for fracture, dislocation or other emergent etiology. However, I did consider more muscle spasm that may be causing some compression. However, as the patient is also linking this more with the Implanon, given the proximity to insertion I do feel that this is appropriate. I did review the warnings from this medication and did note that cardiac etiologies have been noted develop and that patient has had DVTs associated with this medication. Patient has not had any personal history of DVT or HI. She does report that her mom had a stroke at the age of 19 associated with smoking and control. I did consult with the radiologist and will observe obtain a left upper extremity ultrasound which will include the upper extremity as well as subclavian some into the neck. Will also obtain a chest x-ray given the location, again more out of abundance of caution as well as baseline labs. She has no hemodynamic instability, is not endorsing any shortness of breath, no indication to suggest pulmonary emboli. US reviewed by radiologist: FINDINGS: The left internal jugular, axillary, subclavian, cephalic, basilic, brachial, radial, and ulnar veins are patent without evidence of thrombosis. No superficial thrombosis identified. No drainable fluid connection. Linear echogenic focus in the medial upper forearm consistent with Nexplanon device. No abnormal surrounding fluid. IMPRESSION: No DVT. . No evidence of hematoma or drainable fluid collection. Labs reviewed. No leukocytosis. Stable H&H. Troponin within normal limits. Assessment going on for a few days, I do not feel that repeat is warranted at this point. Chest x-ray was also reviewed by radiologist and was not noted to have any acute abnormality. She does have pain elicited with Spurlings test. No objective neurological deficits. Intact strength and sensation. Called WW to discuss and ensure no other concerns regarding the implant. She has no SOB or VS abnromality to suggest PE. Exam does not suggest infection or malplacement or movement of the implant. Spoke with [facility] physician, she and I discussed case, do not feel that there are other emergent complications associated with the implant that ened to be addressed. As her pain was maximal with Spurlings test, concerned for nerve pain radiating from ashly c-aspine. Patient was prescribed Flexeril by her CARE TRANSPORT NURSE prior to coming to the emergency department for further evaluation. Advised that she continue with the Tylenol, ibuprofen. Will also give a lidocaine patch. We discussed home remedies to help with discomfort such as heat and/or ice as well as gentle stretching and mobility. Very strict return precautions, particularly signs of neurologic deficit were discussed with the patient. Patient feels agreeable to this plan and feels safe going home. She is able to return with any new or worsening symptoms. All of her questions and concerns were addressed and she is agreement this plan. Patient will follow-up with primary care next week. This documentation was generated using Sympleration system, please disregard any oddities of phrase or misspellings. Quality:SDOH Health Related Social Needs: No Data to Display [facility] All Active Problems (Updated 07/17/24 @ 14:31 by MANUEL Mitchell) Acute neck pain (Acute) Muscle spasm (Acute) Arm pain, left (Acute) Nexplanon insertion (Acute) Nexplanon in place (Acute) 07/09/24. inserted. Post-nasal drip (Acute) Acute diverticulitis (Acute) 06/2023, 10/2023. 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 Bipolar 2 disorder Surgical History History of colonoscopy (~01/2024) Family History Mother Stroke alive. went on to have 2 SVDs after CVA. Pt unaware of thrombophilia w/u. Father Depression Heart disease Myocardial infarction Sister Substance abuse Sister Substance abuse Brother No problems noted. Grandfather Stroke Grandfather No problems noted. Grandmother Stroke Grandmother No problems noted. Daughter Depression Daughter No problems noted. Social History Smoking/Tobacco Use Status: Former Tobacco Use Quit Date: 05/20/02 Smoking risk assessment performed?: Yes Drug use: Never Substance use type: does not use Household members: children and other Details: . Not relationship. 2 daughters Roslyn 22yo, [id number] Housing: house Number of Children: 2 number of grandchildren: 1 current occupation: Works at [employer] Pets and animals: No Sexually active: No Current gender identity: female Seatbelt use: always Do you feel safe at home: Yes Do you feel safe in your relationship?: Yes Female Reproductive History Menstrual control method: implanted (07/09/24. Nexplanon.) History History 4 Para 2 Hx # Term Pregnancies Multiple births Hx # Pregnancies Ectopic pregnancies AB induced Hx Number of Living Children AB spontaneous
--- NOTE | 2024-07-17 12:00 | DI.RAD_ITS ---
Exam(s) XR CHEST 2V PA LATERAL EXAM: XR CHEST 2V PA LATERAL CLINICAL HISTORY: left arm, upper chest pain TECHNIQUE: 2D digital imaging was performed. Two views. COMPARISON: CR XR CHEST 2V PA LATERAL from 10/14/2018 FINDINGS: HEART: Normal size. Aorta: Not dilated. PULMONARY VASCULATURE: Normal. MEDIASTINUM: Unremarkable. LUNGS: Clear. PLEURAL SPACE: No pleural effusion or pneumothorax. BONE:Unremarkable for age. SOFT TISSUES: Unremarkable. IMPRESSION: No acute abnormality. DATA REPOSITORY: RADIATION DOSE DELIVERED:
--- NOTE | 2024-07-17 12:00 | DI.US_ITS ---
Exam(s) US UPPER EXTREMITY VENOUS LT EXAM: US UPPER EXTREMITY VENOUS LT CLINICAL HISTORY: recent implant, now with pain/swelling into neck. TECHNIQUE: Ultrasound examination of the left upper extremity venous system(s) is performed using gr ayscale, color-flow, and spectral Doppler analysis. COMPARISON: No exams were available for comparison FINDINGS: The left internal jugular, axillary, subclavian, cephalic, basilic, brachial, radial, and ulnar veins are patent without evidence of thrombosis. No superficial thrombosis identified. No drainable flui d connection. Linear echogenic focus in the medial upper forearm consistent with Nexplanon device. No abnormal surrounding fluid. IMPRESSION: No DVT. . No evidence of hematoma or drainable fluid collection. DATA REPOSITORY:
[2024-07-17] MEDS: Acetaminophen 500 MG TAB 1000 MG PO (12:04)
[2024-07-17 12:22] LABS: Abs Immature Grans 0.03 10^3/uL (0.0-0.06); Absolute Basophil Count 0.03 10^3/uL (0.0-0.2); Absolute Eosinophil Count 0.01 10^3/uL (0.0-0.7); Absolute Lymphocyte Count 1.67 10^3/uL (1.2-3.4); Absolute Monocyte Count 0.57 10^3/uL (0.1-0.8); Absolute Neutrophil Count 6.22 10^3/uL (1.2-6.7); Basophils % 0.4 %; Eosinophils % 0.1 %; HCT 42.5 % (36.0-46.0); HGB 14.2 g/dL (11.2-15.7); Immature Grans % 0.4 %; Lymphocytes % 19.6 %; MCH 30.9 pg (27.0-33.0); MCHC 33.4 % (32.0-36.0); MCV 93 fL (80-95); MPV 9.7 fL (8.0-11.0); Monocytes % 6.7 %; Neutrophils % 72.8 %; Platelet Count 376 10^3/uL (130-400); RBC 4.59 10^6/uL (3.93-5.22); RDW 12.7 % (11.7-14.6); RDW-SD 43.6 fL; WBC 8.53 10^3/uL (4.4-10.8)
[2024-07-17 12:40] LABS: ALT 28 U/L (14-59); AST 19 U/L (15-37); Albumin 3.9 g/dL (3.4-5.0); Alkaline Phosphatase 87 U/L (46-116); Anion Gap 11.5 mmol/L (3-11); BUN 12 mg/dL (7-18); Bilirubin, Total 0.58 mg/dL (0.2-1.0); CO2 23.5 mmol/L (21.0-32.0); CREATININE 0.6 mg/dL (0.55-1.02); Calcium 9.1 mg/dL (8.5-10.1); Chloride 107 mmol/L (98-107); Estimated GFR 112.04 (mL/min/1.73m2); Glucose 89 mg/dL (74-106); Potassium 3.8 mmol/L (3.5-5.1); Sodium 142 mmol/L (136-145); Total Protein 7.7 g/dL (6.4-8.2); Troponin I 8 ng/L (<or=51)
[2024-07-17 13:09] LABS: PTT Activated 25.9 sec (20.6-30.2); Prothrombin Time 9.9 sec (9.1-11.1)
[2024-07-17] MEDS: Lidocaine 5% Patch 1 PATCH TP (14:42)
[2024-07-17] MEDS: Ibuprofen 600 MG TAB PO (14:43)
[2024-07-17 14:47] VITALS: BP 143/100; PULSE 99; RESP 20; TEMP 36.8; O2SAT 99
== END 2024-07-17 14:47 | disposition home or self-care (01) ==
PROVIDERS: Emergency Provider Physician Assistant; PCP Nurse Practitioner Family
DX: M54.2 Cervicalgia (principal); M79.602 Pain in left arm
CPT/HCPCS: 80053; 93005; 99285; 71046; 84484; 85025; 85610; 85730; 93010; 93971; 99284

== ENCOUNTER 2024-12-08 18:40 | Outpatient (REF) | payer OTHER, SELFPAY ==
--- NOTE | 2024-12-08 17:30 | PAPFT_PTH ---
PATIENT: Nely Reyes LOC: [facility] U#:[id number] AGE/SX: 44/F ROOM: RE12/08/[address]: Jax Lanier DNP : 1980 BED: DIS: 12/08/2024 SPEC #: [id number] RECD: 12/09/24 12:50 STATUS: KIARA REQuang #: [id number] BEN: 12/08/24 17:[address]: Jax Sanchez DEPT: [facility] Cytology RECD BY: Syl Rodas Tissues: 1 - CX/ENDOCX FOR PAP SMEARS Procedures: PAP THIN PREP/UVM Screening HPV DNA PROBE Comments: [id number] (HPV 16 & 18/45) (CHLAMYDIA/GC)
[2024-12-10 12:10] LABS: Chlamydia Result Negative (Negative); GC Result Negative (Negative)
== END 2024-12-08 18:41 | disposition home or self-care (01) ==
LOC: LBN 18:40
PROVIDERS: PCP Nurse Practitioner Family; Visit Provider Nurse Practitioner Family
DX: Z12.4 Encounter for screening for malignant neoplasm of cervix (principal)
CPT/HCPCS: 87491; 87591; 88142; 87624

== ENCOUNTER 2024-12-29 12:45 | Outpatient (CLI) | payer OTHER, SELFPAY ==
--- NOTE | 2024-12-29 08:30 | DI.MAMMO_ITS ---
Exam(s) MAMMO SCREENING EXAM: MAMMO SCREENING CLINICAL HISTORY: screening,z12.39 TECHNIQUE: Bilateral full field digital CC and MLO mammographic images were obtained with 3D tomosynthesis and utilizing computer aided detection (CAD). COMPARISON: Comparison is made with prior examinations. FINDINGS: Masses/Architectural Distortion: No suspicious masses or areas of architectural distortion are present. There are stable nodules seen in the left breast. Microcalcifications: No suspicious pleomorphic-type are seen. Skin Thickening/Nipple Retraction: None. IMPRESSION: 1. No significant interval change with no specific features of malignancy noted. 2. Unless there is more urgent need, screening mammography is recommended, as per [place] [employer] guidelines. BI-RADS Category 2 - Benign Findings Breast Density - Category B - There are scattered areas of fibroglandular density. Breast density Category C or D implies that the patient has dense breast tissue. Dense breast tissue can make it harder to find cancer on a mammogram. Dense breast tissue is also associated with an increased risk of breast cancer. This information about the result of the mammogram report was provided to the patient to raise their awareness. Use this report when you speak with the patient about their risks for breast cancer, which includes their family history. At that time, you may recommend additional screening tests (Ultrasound or MRI) as these tests may add significant information. A negative radiographic report should not delay biopsy if a dominant or clinically suspicious mass is present. Up to ten percent of cancers are not identified on mammography. A negative report may reinforce clinical impression. Adenosis and dense breasts may obscure an underlying neoplasm. False positive reports average 6 to 10%. Patient will receive a letter notifying them of these results.
== END 2024-12-29 13:05 ==
LOC: DI 12:45
PROVIDERS: PCP Nurse Practitioner Family; Visit Provider Nurse Practitioner Family
DX: Z12.31 Encounter for screening mammogram for malignant neoplasm of breast (principal); R92.323 Mammographic fibroglandular density, bilateral breasts
CPT/HCPCS: 77063; 77067